=== PATIENT | male | born 1970 | race African-American/Black ===

== ENCOUNTER 2018-10-29 14:26 | Inpatient (IN) | payer OTHER ==
[2018-10-29 15:51] VITALS: BMI 23.3
--- NOTE | 2018-10-29 17:09 | HP ---
CIWA Score Nausea/Vomitin Muscle Tremors: 3 Anxiety: 3 Agitation: 0-Normal Activity Paroxysmal Sweats: 2 Orientation: 0-Oriented Tacttile Disturbances: 1-Very Mild Itch/Numbness Auditory Disturbances: 1-Very Mild Visual Disturbances: 0-None Headache: 0-None Present CIWA-Ar Total Score: 13 - Admission Criteria OASAS Guidelines: Admission for Medically Managed Detox: Requires at least one of the followin. CIWA greater than 12 2. Seizures within the past 24 hours 3. Delirium tremens within the past 24 hours 4. Hallucinations within the past 24 hours 5. Acute intervention needed for co occurring medical disorder 6. Acute intervention needed for co occurring psychiatric disorder 7. Severe withdrawal that cannot be handled at a lower level of care (continued vomiting, continued diarrhea, abnormal vital signs) requiring intravenous medication and/or fluids 8. Patient presents the following: CIWA greater than 12 Admission Criteria Met: Admission criteria met Admission ROS S - [facility] Chief Complaint: " I went to work smelling like the liquor store, I had the shakes and had drink " Allergies/Adverse Reactions: Allergies Allergy/AdvReac Type Severity Reaction Status Date / Time shellfish derived Allergy Severe Swelling Verified 10/29/18 16:46 History of Present Illness: 48 yo male with hx nicotine, marijuana and alcohol dependence is here seeking detox, self referred. Last detox two months ago at [facility]. PMHX: asthma, GERD, depression, bipolar, insomnia. Denies suicidal / homicidal. Reports hx of suicide attempt 2x with last attempt 10 years ago. Denies seizures or blackouts. Longest period of sobriety 1.5 years. Exam Limitations: No Limitations - Ebola screening Have you traveled outside of the country in the last 21 days: No Have you had contact with anyone from an Ebola affected area: No Have you been sick,other than usual withdrawal symptoms: No Do you have a fever: No - Review of Systems Constitutional: Chills, Changes in sleep, Unintentional Wgt. Loss EENT: reports: No Symptoms Reported, Dental Problems (dentalgia) Respiratory: reports: No Symptoms reported Cardiac: reports: No Symptoms Reported GI: reports: Nausea, Poor Fluid Intake, Vomiting : reports: No Symptoms Reported Musculoskeletal: reports: Other (right shoulder pain) Integumentary: reports: Pruritus Neuro: reports: No Symptoms reported Endocrine: reports: Increased Thirst Hematology: reports: No Symptoms Reported Psychiatric: reports: Orientated x3, Anxious, Depressed Other Systems: Reviewed and Negative Patient History - Patient Medical History Hx Anemia: No Hx Asthma: Yes Hx Chronic Obstructive Pulmonary Disease (COPD): No Hx Cancer: No Hx Cardiac Disorders: No Hx Congestive Heart Failure: No Hx Hypertension: No Hx Hypercholesterolemia: No Hx Pacemaker: No HX Cerebrovascular Accident: No Hx Seizures: No Hx Dementia: No Hx Diabetes: No Hx Gastrointestinal Disorders: No Hx Liver Disease: No Hx Genitourinary Disorders: No Hx Sexually Transmitted Disorders: Yes (Syphillis treated ) Hx Renal Disease (ESRD): No Hx Thyroid Disease: No Hx Human Immunodeficiency Virus (HIV): No Hx Depression: Yes Hx Suicide Attempt: Yes (Tried to overdose 10 yrs ago.) Hx Bipolar Disorder: Yes Hx Schizophrenia: No - Patient Surgical History Past Surgical History: No - PPD History Previous Implant?: Yes Documented Results: Negative w/o proof Implanted On Prior [facility] Admission?: No PPD to be Administered?: Yes - Smoking Cessation Smoking history: Current every day smoker Have you smoked in the past 12 months: Yes Aproximately how many cigarettes per day: 20 Hx Chewing Tobacco Use: No Initiated information on smoking cessation: Yes 'Breaking Loose' booklet given: 10/29/18 - Substance & Tx. History Hx Alcohol Use: Yes Hx Substance Use: Yes Substance Use Type: Alcohol, Marijuana Hx Substance Use Treatment: Yes (Detox two months ago at [facility] ) - Substances Abused Alcohol Route: Oral Frequency: Daily Amount used: 7-8 beers and 1/2 pint liquor Age of first use: 18 Date of Last Use: 10/29/18 Marijuana/Hashish Route: Smoking Frequency: 3-6 times per week Amount used: 4-5 blunts Age of first use: 17 Date of Last Use: 10/28/18 Cocaine Route: Inhalation Frequency: 3-6 times per week Amount used: $50 Age of first use: 24 Date of Last Use: 10/22/18 Family Disease History - Family Disease History Family Disease History: Other: Father (Substance dependence ), Mother ( Substance dependence) Admission Physical Exam BHS - Vital Signs Vital Signs: Vital Signs - 24 hr 10/29/18 15:49 Temperature 97.2 F L Pulse Rate 87 Respiratory 18 Rate Blood Pressure 119/67 - Physical General Appearance: Yes: Appropriately Dressed, Disheveled, Mild Distress, Thin , Anxious HEENTM: Yes: EOMI, Hearing grossly Normal, Normal ENT Inspection, Normocephalic , Normal Voice, NONA, Pharynx Normal, Tm's normal, Other (poor dentition, cheilithis) Respiratory: Yes: Chest Non-Tender, Lungs Clear, Normal Breath Sounds, No Respiratory Distress, No Accessory Muscle Use Neck: Yes: Within Normal Limits Breast: Yes: Breast Exam Deferred Cardiology: Yes: Regular Rhythm, Regular Rate Abdominal: Yes: Normal Bowel Sounds, Non Tender, Flat, Soft Genitourinary: Yes: Within Normal Limits Back: Yes: Normal Inspection Musculoskeletal: Yes: full range of Motion, Gait Steady, Pelvis Stable Extremities: Yes: Normal Capillary Refill, Normal Inspection, Normal Range of Motion, Non-Tender 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 NML intact, Fully Oriented, Alert, Motor Strength 5/5, Depressed Affect Integumentary: Yes: Normal Color, Warm, Moist Lymphatic: Yes: Within Normal Limits - Diagnostic (1) Alcohol dependence with withdrawal Current Visit: Yes Status: Acute Qualifiers: Complication of substance-induced condition: uncomplicated Qualified Code(s ): F10.230 - Alcohol dependence with withdrawal, uncomplicated (2) Asthma Current Visit: Yes Status: Chronic Qualifiers: Asthma severity: mild Asthma persistence: unspecified Asthma complication type: unspecified Qualified Code(s): J45.909 - Unspecified asthma , uncomplicated (3) GERD (gastroesophageal reflux disease) Current Visit: Yes Status: Acute (4) At risk for dehydration due to poor fluid intake Current Visit: Yes Status: Acute Cleared for Admission [facility] - Detox or Rehab [facility] Level of Care: Medically Managed Detox Regimen/Protocol: Librium [facility] Breath Alcohol Content Breath Alcohol Content: 0.002 Urine Drug Screen - Results Drug Screen Negative: No Urine Drug Screen Results: THC-Marijuana Inpatient Rehab Admission - Rehab Decision to Admit Inpatient rehab admission?: No
[2018-10-29] MEDS ORDERED: P-EPHED 60MG/TRIPROLIDI 2.5MG TABLET PO PRN (17:15)
[2018-10-29] MEDS ORDERED: IBUPROFEN 400 MG TABLET (FP) PO PRN (17:15)
[2018-10-29] MEDS ORDERED: MAGNESIUM HYDROX 2400MG/30ML ORAL SUSPENSION 30 ML CUP PO PRN (17:15)
[2018-10-29] MEDS ORDERED: chlordiazePOXIDE HCL 25 MG CAPSULE PO PRN (17:15)
[2018-10-29] MEDS ORDERED: MAG HYDROX/AL HYDROX/SIMETH 30 ML UNIT-DOSE CUP PO PRN (17:15)
[2018-10-29] MEDS ORDERED: hydrOXYzine PAMOATE 50 MG CAPSULE (FP) PO PRN (17:15)
[2018-10-29] MEDS ORDERED: MAGNESIUM CITRATE 300 ML BOTTLE PO PRN (17:15)
[2018-10-29] MEDS ORDERED: NICOTINE POLACRILEX 2 MG GUM BC PRN (17:15)
[2018-10-29] MEDS ORDERED: guaiFENesin/D-METHORPHAN HB 10 ML UNIT-DOSE CUPS PO PRN (17:15)
[2018-10-29] MEDS ORDERED: LOPERAMIDE HCL 2 MG CAPSULE PO PRN (17:15)
[2018-10-29] MEDS ORDERED: MENTHOL/PHENOL 1 EACH UD MM PRN (17:15)
[2018-10-29] MEDS ORDERED: ACETAMINOPHEN 325 MG TABLET (FP) PO PRN (17:15)
[2018-10-29] MEDS: THIAMINE HCL 100 MG TABLET (FP) PO SCH (22:55)
[2018-10-29] MEDS: chlordiazePOXIDE HCL 25 MG CAPSULE PO SCH (22:56)
[2018-10-30 00:01] LABS: URINE APPEARANCE CLEAR; URINE BILIRUBIN NEGATIVE (<2.0 mg/dL); URINE COLOR YELLOW; URINE GLUCOSE (UA) NEGATIVE (NEGATIVE); URINE KETONE NEGATIVE (NEGATIVE); URINE LEUK ESTERASE NEGATIVE (NEGATIVE); URINE NITRITE NEGATIVE (NEGATIVE); URINE PROTEIN NEGATIVE (NEGATIVE)
[2018-10-30] MEDS: chlordiazePOXIDE HCL 25 MG CAPSULE PO SCH ×4 (06:34→22:36)
[2018-10-30] MEDS: PRENATAL VITAMINS W/ FOLIC ACID TABLET (FP) PO SCH (10:07)
[2018-10-30] MEDS: NICOTINE 14 MG/24 HOURS TOPICAL PATCH TD SCH (10:09)
[2018-10-30 10:51] LABS: HEMATOCRIT 42.9 % (35.4-49); HEMOGLOBIN 14.9 GM/dL (11.7-16.9); MCHC 34.9 g/dl (32.0-35.9); MEAN CELL VOLUME 97.4 fl (80-96); MEAN PLT VOLUME 8.3 fl (7.5-11.1); PLATELET COUNT 223 K/MM3 (134-434); RDW 12.7 % (11.9-15.9)
[2018-10-30 10:53] LABS: ALBUMIN 3.2 g/dl (3.4-5.0); ALK PHOS 65 U/L (45-117); ANION GAP 6 MMOL/L (8-16); BILIRUBIN,TOTAL 0.4 mg/dL (0.2-1); BLOOD UREA NITROGEN 12 mg/dL (7-18); CALCIUM 8.7 mg/dL (8.5-10.1); CHLORIDE 108 mmol/L (98-107); CO2 27 mmol/L (21-32); CREATININE 1.1 mg/dL (0.55-1.3); GLUCOSE,RANDOM 84 mg/dL (74-106); POTASSIUM 4.4 mmol/L (3.5-5.1); SGOT/AST 14 U/L (15-37); SGPT/ALT 18 U/L (13-61); SODIUM 141 mmol/L (136-145); TOT PROT 5.9 g/dl (6.4-8.2)
--- NOTE | 2018-10-30 11:12 | PN ---
S CIWA - CIWA Score Nausea/Vomitin-No Nausea/No Vomiting Muscle Tremors: 3 Anxiety: 3 Agitation: 3 Paroxysmal Sweats: 3 Orientation: 0-Oriented Tacttile Disturbances: 0-None Auditory Disturbances: 0-None Visual Disturbances: 0-None Headache: 0-None Present CIWA-Ar Total Score: 12 BHS Progress Note (SOAP) Subjective: sweats shakes right shoulder pain interrupted sleep anxiety chest discomfort I think I have pneumonia Objective: 10/30/18 11:07 Vital Signs Temperature 96.9 F L 10/30/18 09:26 Pulse Rate 78 10/30/18 09:26 Respiratory Rate 18 10/30/18 09:26 Blood Pressure 121/66 10/30/18 09:26 O2 Sat by Pulse Oximetry (%) Laboratory Tests 10/29/18 10/30/18 23:05 07:00 Sodium 141 Potassium 4.4 Chloride 108 H Carbon Dioxide 27 Anion Gap 6 L BUN 12 Creatinine 1.1 Creat Clearance w eGFR > 60 Random Glucose 84 Calcium 8.7 Total Bilirubin 0.4 AST 14 L ALT 18 Alkaline Phosphatase 65 Total Protein 5.9 L Albumin 3.2 L Urine Color Yellow Urine Appearance Clear Urine pH 6.0 Ur Specific [place] 1.024 Urine Protein Negative Urine Glucose (UA) Negative Urine Ketones Negative Urine Blood Negative Urine Nitrite Negative Urine Bilirubin Negative Urine Urobilinogen 2.0 Ur Leukocyte Esterase Negative aaox3 ambulating no acute distress Assessment: 10/30/18 11:08 withdrawal sx right shoulder assess; pt is able to raise arm over head, however when pt asked to move arm and touch left shoulder; pt exhibited some discomfort and some resistance. Plan: continue detox increase fluids chest x-ray and shoulder x-ray ordered continue detox
[2018-10-30] MEDS: HYDROCORTISONE 1% TOPICAL CREAM 30 GM TUBE TP SCH (11:15)
[2018-10-30] MEDS: THIAMINE HCL 100 MG TABLET (FP) PO SCH (22:36)
[2018-10-30] MEDS: MELATONIN 5 MG TABLETS PO PRN (22:37)
[2018-10-31] MEDS: chlordiazePOXIDE HCL 25 MG CAPSULE PO SCH ×3 (07:08→17:28)
[2018-10-31] MEDS: HYDROCORTISONE 1% TOPICAL CREAM 30 GM TUBE TP SCH (10:29)
[2018-10-31] MEDS: NICOTINE 14 MG/24 HOURS TOPICAL PATCH TD SCH (10:29)
[2018-10-31] MEDS: PRENATAL VITAMINS W/ FOLIC ACID TABLET (FP) PO SCH (10:29)
--- NOTE | 2018-10-31 11:17 | PN ---
[facility] CIWA - CIWA Score Nausea/Vomitin-Mild Nausea/No Vomiting Muscle Tremors: 3 Anxiety: 3 Agitation: 2 Paroxysmal Sweats: 3 Orientation: 0-Oriented Tacttile Disturbances: 0-None Auditory Disturbances: 0-None Visual Disturbances: 0-None Headache: 0-None Present CIWA-Ar Total Score: 12 S Progress Note (SOAP) Subjective: "chest discomfort,heartburn" sweats Objective: 10/31/18 11:14 A & o x 3 Gait steady No guarding, SOB nor acute distress noted Vital Signs Temperature 96.4 F L 10/31/18 09:32 Pulse Rate 80 10/31/18 09:32 Respiratory Rate 18 10/31/18 09:32 Blood Pressure 126/69 10/31/18 09:32 O2 Sat by Pulse Oximetry (%) Noted Radiology reports consulted Assessment: 10/31/18 11:17 Withdrawal sx Heartburn Plan: Continue detox Protonis prn for heartburn
[2018-10-31] MEDS: PANTOPRAZOLE 20 MG TABLET (FP) PO SCH ×2 (12:24→22:17)
[2018-10-31] MEDS: IBUPROFEN 600 MG TABLET (FP) PO PRN (15:40)
[2018-10-31] MEDS: chlordiazePOXIDE 5 MG CAPSULE PO SCH (22:17)
[2018-10-31] MEDS: THIAMINE HCL 100 MG TABLET (FP) PO SCH (22:17)
[2018-11-01] MEDS: chlordiazePOXIDE 5 MG CAPSULE PO SCH ×3 (07:01→17:15)
[2018-11-01] MEDS: PANTOPRAZOLE 20 MG TABLET (FP) PO SCH ×2 (10:02→22:03)
[2018-11-01] MEDS: HYDROCORTISONE 1% TOPICAL CREAM 30 GM TUBE TP SCH (10:02)
[2018-11-01] MEDS: NICOTINE 14 MG/24 HOURS TOPICAL PATCH TD SCH (10:02)
[2018-11-01] MEDS: PRENATAL VITAMINS W/ FOLIC ACID TABLET (FP) PO SCH (10:02)
--- NOTE | 2018-11-01 14:53 | PN ---
BHS Progress Note (SOAP) Subjective: Sweating, tremor, chills, interrupted sleep. Patient c/o problem with right shoulder. Patient had xray of right shoulder on 10/30/18 which was negative. Objective: 11/01/18 14:49 Last Vital Signs Temp Pulse Resp BP Pulse Ox 96.8 F L 77 18 128/64 11/01/18 10:00 11/01/18 10:00 11/01/18 10:00 11/01/18 10:00 Laboratory Tests 10/29/18 10/30/18 10/30/18 23:05 07:00 07:00 WBC 6.0 RBC 4.40 Hgb 14.9 Hct 42.9 MCV 97.4 H MCH 34.0 H MCHC 34.9 RDW 12.7 Plt Count 223 MPV 8.3 Sodium Potassium Chloride Carbon Dioxide Anion Gap BUN Creatinine Creat Clearance w eGFR Random Glucose Calcium Total Bilirubin AST ALT Alkaline Phosphatase Total Protein Albumin Urine Color Yellow Urine Appearance Clear Urine pH 6.0 Ur Specific [place] 1.024 Urine Protein Negative Urine Glucose (UA) Negative Urine Ketones Negative Urine Blood Negative Urine Nitrite Negative Urine Bilirubin Negative Urine Urobilinogen 2.0 Ur Leukocyte Esterase Negative RPR Titer HIV 1&2 Antibody Screen Negative HIV P24 Antigen Negative 10/30/18 10/30/18 07:00 07:00 WBC RBC Hgb Hct MCV MCH MCHC RDW Plt Count MPV Sodium 141 Potassium 4.4 Chloride 108 H Carbon Dioxide 27 Anion Gap 6 L BUN 12 Creatinine 1.1 Creat Clearance w eGFR > 60 Random Glucose 84 Calcium 8.7 Total Bilirubin 0.4 AST 14 L ALT 18 Alkaline Phosphatase 65 Total Protein 5.9 L Albumin 3.2 L Urine Color Urine Appearance Urine pH Ur Specific [place] Urine Protein Urine Glucose (UA) Urine Ketones Urine Blood Urine Nitrite Urine Bilirubin Urine Urobilinogen Ur Leukocyte Esterase RPR Titer Nonreactive HIV 1&2 Antibody Screen HIV P24 Antigen Labs reviewed DI on 10/30/18: chest xray negative for pulmonary disease; right shoulder xray negative for fx or subluxation Assessment: 11/01/18 14:50 Withdrawal symptoms Patient c/o pain/problem with right shoulder Plan: Continue detox Encouraged PO water hydration Right shoulder pain/discomfort: continue motrin/tylenol prn Follow up with PCP post discharge for further evaluation
[2018-11-01] MEDS: THIAMINE HCL 100 MG TABLET (FP) PO SCH (22:02)
[2018-11-01] MEDS: chlordiazePOXIDE HCL 10 MG CAPSULE PO SCH (22:03)
[2018-11-01] MEDS: MELATONIN 5 MG TABLETS PO PRN (22:03)
[2018-11-02] MEDS: IBUPROFEN 600 MG TABLET (FP) PO PRN (03:37)
[2018-11-02] MEDS: chlordiazePOXIDE HCL 10 MG CAPSULE PO SCH ×3 (07:32→18:07)
--- NOTE | 2018-11-02 09:18 | DS ---
[facility] Detox Discharge Summary Admission Date: 10/29/18 Discharge Date: 11/02/18 - History Present History: Alcohol Dependence - Physical Exam Results Vital Signs: Vital Signs Temperature 97.5 F L 11/02/18 06:43 Pulse Rate 76 11/02/18 06:43 Respiratory Rate 20 11/02/18 06:43 Blood Pressure 119/68 11/02/18 06:43 O2 Sat by Pulse Oximetry (%) - Treatment Hospital Course: Detox Protocol Followed, Detoxed Safely, Responded well, Discharged Condition Good, Rehab Referral Accepted - Medication Discharge Medications: Ambulatory Orders Unobtainable 10/29/18 - Diagnosis (1) Alcohol dependence with withdrawal Current Visit: Yes Status: Chronic Qualifiers: Complication of substance-induced condition: uncomplicated Qualified Code(s ): F10.230 - Alcohol dependence with withdrawal, uncomplicated (2) At risk for dehydration due to poor fluid intake Current Visit: Yes Status: Acute (3) GERD (gastroesophageal reflux disease) Current Visit: Yes Status: Chronic Qualifiers: Esophagitis presence: without esophagitis Qualified Code(s): K21.9 - Gastro -esophageal reflux disease without esophagitis (4) Asthma Current Visit: Yes Status: Chronic Qualifiers: Asthma severity: mild Asthma persistence: unspecified Asthma complication type: unspecified Qualified Code(s): J45.909 - Unspecified asthma , uncomplicated - AMA Did Patient Leave Against Medical Advice: No (referred to [facility])
[2018-11-02] MEDS: HYDROCORTISONE 1% TOPICAL CREAM 30 GM TUBE TP SCH (10:11)
[2018-11-02] MEDS: PRENATAL VITAMINS W/ FOLIC ACID TABLET (FP) PO SCH (10:11)
[2018-11-02] MEDS: PANTOPRAZOLE 20 MG TABLET (FP) PO SCH (10:11)
--- NOTE | 2018-11-02 11:08 | EKG ---
Test Reason : Blood Pressure : / mmHG Vent. Rate : 086 BPM Atrial Rate : 086 BPM P-R Int : 162 ms QRS Dur : 086 ms QT Int : 368 ms P-R-T Axes : 047 076 049 degrees QTc Int : 440 ms NORMAL SINUS RHYTHM NORMAL ECG NO PREVIOUS ECGS AVAILABLE Confirmed by GORGE DAVENPORT, NARENDRA ([id number]) on 11/02/2018 11:08:24 AM Referred By: FORTUNATO RUSHING Confirmed By:NARENDRA PENNINGTON MD
[2018-11-02] MEDS: NICOTINE 14 MG/24 HOURS TOPICAL PATCH TD SCH (12:11)
[2018-11-02 17:26] VITALS: BP 129/82; PULSE 78; TEMP 97.2
== END 2018-11-02 19:37 | disposition other institution (70) | DRG 774 ==
LOC: YASAS 14:26 → Y6N 17:19
PROVIDERS: ADMIT Surgery; ATTEND Surgery
PROC: HZ2ZZZZ Detoxification Services for Substance Abuse Treatment (ICD-10-PCS; principal; 2018-10-29)
DX: F10.230 Alcohol dependence with withdrawal, uncomplicated (principal); F14.10 Cocaine abuse, uncomplicated; F12.10 Cannabis abuse, uncomplicated; K21.9 Gastro-esophageal reflux disease without esophagitis; G47.00 Insomnia, unspecified; M25.511 Pain in right shoulder; Z91.89 Other specified personal risk factors, not elsewhere classified; Z86.19 Personal history of other infectious and parasitic diseases; Z91.5 Personal history of self-harm; Z91.013 Allergy to seafood
CPT/HCPCS: 36415; 71046-TC-FY; 73030-TC-RT-FY; 80053; 81003; 85027; 86593; 87389; 93005; 93010

== ENCOUNTER 2018-11-02 19:56 | Inpatient (IN) | payer OTHER ==
[2018-11-03] MEDS ORDERED: MAG HYDROX/AL HYDROX/SIMETH 30 ML UNIT-DOSE CUP PO PRN (00:06)
[2018-11-03] MEDS ORDERED: LOPERAMIDE HCL 2 MG CAPSULE PO PRN (00:06)
[2018-11-03] MEDS ORDERED: guaiFENesin/D-METHORPHAN HB 10 ML UNIT-DOSE CUPS PO PRN (00:06)
[2018-11-03] MEDS ORDERED: MENTHOL/PHENOL 1 EACH UD MM PRN (00:06)
[2018-11-03] MEDS ORDERED: MAGNESIUM HYDROX 2400MG/30ML ORAL SUSPENSION 30 ML CUP PO PRN (00:06)
[2018-11-03] MEDS ORDERED: P-EPHED 60MG/TRIPROLIDI 2.5MG TABLET PO PRN (00:06)
[2018-11-03] MEDS ORDERED: NICOTINE POLACRILEX 2 MG GUM BUC PRN (00:06)
[2018-11-03] MEDS ORDERED: MAGNESIUM CITRATE 300 ML BOTTLE PO PRN (00:06)
--- NOTE | 2018-11-03 00:06 | HP ---
JOVANNA DAVENPORT Rehab Assess/Revision - Admission History Admitted to Rehab from: [facility] Date of Admission to Rehab: 11/02/2018 - Vital signs Vital Signs: Vital Signs Period Temp Pulse Resp BP Sys/Peck Pulse Ox Last 24 Hr 91 18 150/74 - Findings Detox History & Physical reviewed: Yes Concur with findings: Yes Inpatient Rehab Admission - Rehab Decision to Admit Inpatient rehab admission?: Yes - Initial Determination Are CD services needed?: Yes Free of communicable disease: Yes Not in need of hospitalization: Yes - Rehab Admission Criteria Previous failed treatment: Yes Poor recovery environment: Yes Comorbidities: Yes Lacks judgement: No Patient is meeting Inpatient Rehab admission criteria:: Yes
[2018-11-03] MEDS: IBUPROFEN 400 MG TABLET (FP) PO PRN (04:11)
[2018-11-03] MEDS: PRENATAL VITAMINS W/ FOLIC ACID TABLET (FP) PO SCH (10:24)
[2018-11-03] MEDS: NICOTINE 14 MG/24 HOURS TOPICAL PATCH TD SCH (10:25)
[2018-11-03] MEDS: hydrOXYzine PAMOATE 50 MG CAPSULE (FP) PO PRN ×2 (10:26→21:47)
[2018-11-03] MEDS: THIAMINE HCL 100 MG TABLET (FP) PO SCH (21:47)
[2018-11-03] MEDS: MELATONIN 5 MG TABLETS PO PRN (21:47)
--- NOTE | 2018-11-04 06:55 | CONSULT ---
[facility] Psychiatric Consult - Data Date of interview: 11/04/18 Admission source: 6N Identifying data: Mr Infante is a 48 years old single Black male, father of 5 children, unemployed receiving food stamp, homeles seeking inpatient rehab treatment for alcohol, cocaine and cannabis Substance Abuse History: Reports history of alcohol, cocaine and marijuana use. Refer to addiction counselor's summary for further information Medical History: Significant for bronchial asthma, GERD, and treatment for syphilis. Smokes cigarettes 1 ppd Psychiatric History: Reports being diagnosed with Bipolar Disorder in the early while at [employer]. Claims that he was started on psychotropic medication but does recall name of medication. While incarcerated at [facility] from [id number], he saw a psychiatrist and was placed on medication. 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 Reports that he was last on Seroquel 300 mg po HS. Requests to start Seroquel during this admission course. Denies previous psychiatric hospitalization. Reports history of 2 previous suicidal attempts by cutting his wrist and ingesting pills. At present, reports feeling depressed and sleeping poorly. Deniesc experiencing Psychotic, manic symptoms, S/H ideations Physical/Sexual Abuse/Trauma History: Denies history of emotional, physical or sexual abuse. However reports that growing up was tough. tell typewriter tester that he was a bad kid and was considered as an outcast. He said that he had to live in the street when he was 14-15 years old Additional Comment: Reports history of multiple previous arrests including 2 felony convictions. Denies being on parole/probation at present. [place]ver claims that he has a warrant on him for unpaid tickets Mental Status Exam - Mental Status Exam Alert and Oriented to: Time, Place, Person Cognitive Function: Fair Patient Appearance: Well Groomed Mood: Depressed (mildly) Affect: Appropriate Patient Behavior: Cooperative Speech Pattern: Clear Voice Loudness: Normal Thought Process: Intact Thought Disorder: Not Present Hallucinations: Denies Suicidal Ideation: Denies Homicidal Ideation: Denies Insight/Judgement: Fair Sleep: Poorly Appetite: Fair Muscle strength/Tone: Normal Gait/Station: Normal Psychiatric Findings - Problem List ([place] 1, 2,3) (1) Mood disorder Current Visit: Yes Status: Chronic (2) Bipolar disorder Current Visit: Yes Status: Ruled-out (3) Substance induced mood disorder Current Visit: Yes Status: Acute (4) Substance-induced sleep disorder Current Visit: Yes Status: Acute (5) Alcohol dependence Current Visit: Yes Status: Acute (6) Cocaine dependence Current Visit: Yes Status: Acute (7) Cannabis dependence Current Visit: Yes Status: Acute (8) Nicotine dependence Current Visit: Yes Status: Chronic (9) Bronchial asthma Current Visit: Yes Status: Chronic (10) GERD (gastroesophageal reflux disease) Current Visit: Yes Status: Acute - Initial Treatment Plan Initial Treatment Plan: 1) Start Seroquel 100 mg po HS. Benefits vs Risks(TD, Glucose dysregulation) of medication discussed with patient. 2) Continue inpatient rehabilitation
[2018-11-04] MEDS: NICOTINE 14 MG/24 HOURS TOPICAL PATCH TD SCH (10:16)
[2018-11-04] MEDS: PRENATAL VITAMINS W/ FOLIC ACID TABLET (FP) PO SCH (10:16)
--- NOTE | 2018-11-04 11:53 | PN ---
S Progress Note Note: C/O ITCHY RASH ON BACK X ONE MONTH. PT STATES WENT TO [facility] TWO WEEKS AGO FOR TOOTH ACHE. REPORTS WAS GIVEN "ANTIBIOTICS(TWICE A DAY) AND PAIN KILLER" THAT HE WAS TAKEN FOR "ONE WEEK - TWO WEEKS ON/OFF BECAUSE ILL BE DRINKING". REPORTS RASH ON BACK HAS GOTTEN BETTER WITH THE TREATMENT. Vital Signs (72 hours) 11/02/18 11/03/18 11/03/18 20:00 00:30 03:30 Temperature Pulse Rate 91 H Respiratory 18 18 18 Rate Blood Pressure 150/74 11/03/18 11/04/18 11/04/18 07:13 00:30 03:30 Temperature 97.6 F Pulse Rate 88 Respiratory 18 18 18 Rate Blood Pressure 132/79 BACK EXAM: SMALL AREA OF DRY, SLIGHTLY DARKER SKIN DISCOLORATION ON LEFT UPPER BACK IN HEALING STAGE. NAD A:DERMATITIS PLAN:HYDROCORTISONE CREAM 1% APPLY DIRECTED.
[2018-11-04] MEDS ORDERED: HYDROCORTISONE 1% TOPICAL OINT 30 GM TUBE TP ONE (11:55)
[2018-11-04] MEDS: IBUPROFEN 400 MG TABLET (FP) PO PRN (21:54)
[2018-11-04] MEDS: THIAMINE HCL 100 MG TABLET (FP) PO SCH (21:54)
[2018-11-04] MEDS: QUEtiapine FUMARATE 100 MG TABLET (FP) PO SCH (21:54)
[2018-11-04] MEDS: HYDROCORTISONE 1% TOPICAL OINT 30 GM TUBE TP SCH (21:55)
[2018-11-04] MEDS ORDERED: HYDROCORTISONE 1% TOPICAL OINT 30 GM TUBE TP SCH (22:00)
[2018-11-05] MEDS: HYDROCORTISONE 1% TOPICAL OINT 30 GM TUBE TP SCH ×2 (10:01→22:08)
[2018-11-05] MEDS: PRENATAL VITAMINS W/ FOLIC ACID TABLET (FP) PO SCH (10:02)
[2018-11-05] MEDS: NICOTINE 14 MG/24 HOURS TOPICAL PATCH TD SCH (10:02)
[2018-11-05] MEDS: ACETAMINOPHEN 325 MG TABLET (FP) PO PRN (18:16)
[2018-11-05] MEDS: THIAMINE HCL 100 MG TABLET (FP) PO SCH (22:08)
[2018-11-05] MEDS: QUEtiapine FUMARATE 100 MG TABLET (FP) PO SCH (22:08)
[2018-11-06] MEDS: IBUPROFEN 400 MG TABLET (FP) PO PRN (00:02)
[2018-11-06] MEDS: PRENATAL VITAMINS W/ FOLIC ACID TABLET (FP) PO SCH (10:42)
[2018-11-06] MEDS: NICOTINE 14 MG/24 HOURS TOPICAL PATCH TD SCH (10:42)
[2018-11-06] MEDS: HYDROCORTISONE 1% TOPICAL OINT 30 GM TUBE TP SCH ×2 (10:43→22:57)
[2018-11-06] MEDS: QUEtiapine FUMARATE 100 MG TABLET (FP) PO SCH (22:57)
[2018-11-06] MEDS: THIAMINE HCL 100 MG TABLET (FP) PO SCH (22:57)
[2018-11-07] MEDS: IBUPROFEN 400 MG TABLET (FP) PO PRN ×3 (00:47→22:00)
[2018-11-07] MEDS: PRENATAL VITAMINS W/ FOLIC ACID TABLET (FP) PO SCH (10:10)
[2018-11-07] MEDS: NICOTINE 14 MG/24 HOURS TOPICAL PATCH TD SCH (10:10)
[2018-11-07] MEDS: HYDROCORTISONE 1% TOPICAL OINT 30 GM TUBE TP SCH ×2 (10:10→22:01)
[2018-11-07] MEDS: THIAMINE HCL 100 MG TABLET (FP) PO SCH (21:59)
[2018-11-07] MEDS: QUEtiapine FUMARATE 100 MG TABLET (FP) PO SCH (22:00)
[2018-11-08] MEDS: IBUPROFEN 400 MG TABLET (FP) PO PRN (10:37)
[2018-11-08] MEDS: PRENATAL VITAMINS W/ FOLIC ACID TABLET (FP) PO SCH (10:37)
[2018-11-08] MEDS: NICOTINE 14 MG/24 HOURS TOPICAL PATCH TD SCH (10:37)
[2018-11-08] MEDS: HYDROCORTISONE 1% TOPICAL OINT 30 GM TUBE TP SCH ×2 (10:38→22:21)
[2018-11-08] MEDS: THIAMINE HCL 100 MG TABLET (FP) PO SCH (22:20)
[2018-11-08] MEDS: QUEtiapine FUMARATE 100 MG TABLET (FP) PO SCH (22:20)
[2018-11-09] MEDS: NICOTINE 14 MG/24 HOURS TOPICAL PATCH TD SCH (10:57)
[2018-11-09] MEDS: PRENATAL VITAMINS W/ FOLIC ACID TABLET (FP) PO SCH (10:57)
[2018-11-09] MEDS: HYDROCORTISONE 1% TOPICAL OINT 30 GM TUBE TP SCH ×2 (10:57→21:54)
--- NOTE | 2018-11-09 13:44 | PN ---
BHS Progress Note Note: C/O PAIN RIGHT SHOULDER. PT DENIES TRUAMA TO THE SHOULDER. MOTRIN 400 MG NOT EFFECTIVE. Vital Signs - 24 hr 11/09/18 11/09/18 11/09/18 00:30 03:30 07:07 Temperature 98.1 F Pulse Rate 89 Respiratory 18 18 18 Rate Blood Pressure 129/81 RIGHT ARM:ACTIVE ROM NORMAL HAND RAISE NO SWELLING NOTED. A:RIGHT SHOULDER PAIN PLAN:INCREASE [id number] MG PO Q6H PRN FLEXERIL 10 MG PO TID.
[2018-11-09] MEDS: CYCLOBENZAPRINE HCL 10 MG TABLET (FP) PO SCH ×2 (15:05→21:52)
[2018-11-09] MEDS: THIAMINE HCL 100 MG TABLET (FP) PO SCH (21:52)
[2018-11-09] MEDS: IBUPROFEN 600 MG TABLET (FP) PO PRN (21:52)
[2018-11-09] MEDS: QUEtiapine FUMARATE 100 MG TABLET (FP) PO SCH (21:52)
[2018-11-10] MEDS: CYCLOBENZAPRINE HCL 10 MG TABLET (FP) PO SCH ×3 (07:05→21:37)
[2018-11-10] MEDS: PRENATAL VITAMINS W/ FOLIC ACID TABLET (FP) PO SCH (10:26)
[2018-11-10] MEDS: NICOTINE 14 MG/24 HOURS TOPICAL PATCH TD SCH (10:26)
[2018-11-10] MEDS: HYDROCORTISONE 1% TOPICAL OINT 30 GM TUBE TP SCH ×2 (10:27→21:37)
[2018-11-10] MEDS: IBUPROFEN 600 MG TABLET (FP) PO PRN (10:28)
[2018-11-10] MEDS: QUEtiapine FUMARATE 100 MG TABLET (FP) PO SCH (21:37)
[2018-11-10] MEDS: THIAMINE HCL 100 MG TABLET (FP) PO SCH (21:37)
[2018-11-11] MEDS: CYCLOBENZAPRINE HCL 10 MG TABLET (FP) PO SCH ×3 (06:58→22:03)
[2018-11-11] MEDS: HYDROCORTISONE 1% TOPICAL OINT 30 GM TUBE TP SCH ×2 (10:45→22:04)
[2018-11-11] MEDS: PRENATAL VITAMINS W/ FOLIC ACID TABLET (FP) PO SCH (10:45)
[2018-11-11] MEDS: NICOTINE 14 MG/24 HOURS TOPICAL PATCH TD SCH (10:46)
[2018-11-11] MEDS: IBUPROFEN 600 MG TABLET (FP) PO PRN ×2 (13:24→22:04)
[2018-11-11] MEDS: QUEtiapine FUMARATE 100 MG TABLET (FP) PO SCH (22:02)
[2018-11-11] MEDS: THIAMINE HCL 100 MG TABLET (FP) PO SCH (22:03)
[2018-11-12] MEDS: CYCLOBENZAPRINE HCL 10 MG TABLET (FP) PO SCH ×2 (07:14→17:30)
[2018-11-12] MEDS ORDERED: CYCLOBENZAPRINE HCL 10 MG TABLET (FP) PO ONE (10:23)
[2018-11-12] MEDS: NICOTINE 14 MG/24 HOURS TOPICAL PATCH TD SCH (10:55)
[2018-11-12] MEDS: PRENATAL VITAMINS W/ FOLIC ACID TABLET (FP) PO SCH (10:55)
[2018-11-12] MEDS: IBUPROFEN 600 MG TABLET (FP) PO PRN ×2 (11:02→21:38)
[2018-11-12] MEDS: HYDROCORTISONE 1% TOPICAL OINT 30 GM TUBE TP SCH ×2 (11:41→21:39)
[2018-11-12] MEDS: ACETAMINOPHEN 325 MG TABLET (FP) PO PRN (14:21)
[2018-11-12] MEDS: hydrOXYzine PAMOATE 50 MG CAPSULE (FP) PO PRN (14:21)
[2018-11-12] MEDS: QUEtiapine FUMARATE 100 MG TABLET (FP) PO SCH (21:37)
[2018-11-12] MEDS: THIAMINE HCL 100 MG TABLET (FP) PO SCH (21:37)
[2018-11-13] MEDS: NICOTINE 14 MG/24 HOURS TOPICAL PATCH TD SCH (10:38)
[2018-11-13] MEDS: CYCLOBENZAPRINE HCL 10 MG TABLET (FP) PO SCH ×2 (10:38→17:45)
[2018-11-13] MEDS: PRENATAL VITAMINS W/ FOLIC ACID TABLET (FP) PO SCH (10:38)
[2018-11-13] MEDS: HYDROCORTISONE 1% TOPICAL OINT 30 GM TUBE TP SCH ×2 (10:39→22:09)
[2018-11-13] MEDS: IBUPROFEN 600 MG TABLET (FP) PO PRN ×2 (10:41→19:55)
[2018-11-13] MEDS: QUEtiapine FUMARATE 100 MG TABLET (FP) PO SCH (22:09)
[2018-11-13] MEDS: THIAMINE HCL 100 MG TABLET (FP) PO SCH (22:09)
[2018-11-14] MEDS: PRENATAL VITAMINS W/ FOLIC ACID TABLET (FP) PO SCH (10:45)
[2018-11-14] MEDS: CYCLOBENZAPRINE HCL 10 MG TABLET (FP) PO SCH ×2 (10:45→17:04)
[2018-11-14] MEDS: HYDROCORTISONE 1% TOPICAL OINT 30 GM TUBE TP SCH ×2 (10:45→21:56)
[2018-11-14] MEDS: NICOTINE 14 MG/24 HOURS TOPICAL PATCH TD SCH (10:45)
[2018-11-14] MEDS: IBUPROFEN 600 MG TABLET (FP) PO PRN ×2 (16:54→21:57)
[2018-11-14] MEDS: THIAMINE HCL 100 MG TABLET (FP) PO SCH (21:56)
[2018-11-14] MEDS: QUEtiapine FUMARATE 100 MG TABLET (FP) PO SCH (21:56)
[2018-11-15] MEDS: HYDROCORTISONE 1% TOPICAL OINT 30 GM TUBE TP SCH ×2 (10:57→21:49)
[2018-11-15] MEDS: IBUPROFEN 600 MG TABLET (FP) PO PRN ×2 (10:57→21:48)
[2018-11-15] MEDS: CYCLOBENZAPRINE HCL 10 MG TABLET (FP) PO SCH ×2 (10:57→17:24)
[2018-11-15] MEDS: NICOTINE 14 MG/24 HOURS TOPICAL PATCH TD SCH (10:57)
[2018-11-15] MEDS: PRENATAL VITAMINS W/ FOLIC ACID TABLET (FP) PO SCH (10:57)
[2018-11-15] MEDS: THIAMINE HCL 100 MG TABLET (FP) PO SCH (21:47)
[2018-11-15] MEDS: QUEtiapine FUMARATE 100 MG TABLET (FP) PO SCH (21:47)
[2018-11-16] MEDS: CYCLOBENZAPRINE HCL 10 MG TABLET (FP) PO SCH ×2 (10:57→18:37)
[2018-11-16] MEDS: PRENATAL VITAMINS W/ FOLIC ACID TABLET (FP) PO SCH (10:57)
[2018-11-16] MEDS: HYDROCORTISONE 1% TOPICAL OINT 30 GM TUBE TP SCH ×2 (10:58→22:01)
[2018-11-16] MEDS: NICOTINE 14 MG/24 HOURS TOPICAL PATCH TD SCH (10:58)
[2018-11-16] MEDS: QUEtiapine FUMARATE 100 MG TABLET (FP) PO SCH (21:59)
[2018-11-16] MEDS: THIAMINE HCL 100 MG TABLET (FP) PO SCH (21:59)
[2018-11-16] MEDS: IBUPROFEN 600 MG TABLET (FP) PO PRN (22:00)
[2018-11-17] MEDS: CYCLOBENZAPRINE HCL 10 MG TABLET (FP) PO SCH ×2 (11:08→17:51)
[2018-11-17] MEDS: HYDROCORTISONE 1% TOPICAL OINT 30 GM TUBE TP SCH ×2 (11:09→22:02)
[2018-11-17] MEDS: NICOTINE 14 MG/24 HOURS TOPICAL PATCH TD SCH (11:09)
[2018-11-17] MEDS: PRENATAL VITAMINS W/ FOLIC ACID TABLET (FP) PO SCH (11:10)
[2018-11-17] MEDS: IBUPROFEN 600 MG TABLET (FP) PO PRN (17:52)
[2018-11-17] MEDS: QUEtiapine FUMARATE 100 MG TABLET (FP) PO SCH (22:01)
[2018-11-17] MEDS: THIAMINE HCL 100 MG TABLET (FP) PO SCH (22:01)
[2018-11-17] MEDS: ACETAMINOPHEN 325 MG TABLET (FP) PO PRN (22:03)
[2018-11-18] MEDS: CYCLOBENZAPRINE HCL 10 MG TABLET (FP) PO SCH ×2 (11:10→17:11)
[2018-11-18] MEDS: HYDROCORTISONE 1% TOPICAL OINT 30 GM TUBE TP SCH ×2 (11:10→21:53)
[2018-11-18] MEDS: PRENATAL VITAMINS W/ FOLIC ACID TABLET (FP) PO SCH (11:11)
[2018-11-18] MEDS: NICOTINE 14 MG/24 HOURS TOPICAL PATCH TD SCH (11:11)
[2018-11-18] MEDS: QUEtiapine FUMARATE 100 MG TABLET (FP) PO SCH (21:52)
[2018-11-18] MEDS: THIAMINE HCL 100 MG TABLET (FP) PO SCH (21:52)
[2018-11-18] MEDS: IBUPROFEN 600 MG TABLET (FP) PO PRN (21:52)
[2018-11-19] MEDS: PRENATAL VITAMINS W/ FOLIC ACID TABLET (FP) PO SCH (10:46)
[2018-11-19] MEDS: CYCLOBENZAPRINE HCL 10 MG TABLET (FP) PO SCH ×2 (10:46→17:08)
[2018-11-19] MEDS: HYDROCORTISONE 1% TOPICAL OINT 30 GM TUBE TP SCH ×2 (10:47→21:53)
[2018-11-19] MEDS: NICOTINE 14 MG/24 HOURS TOPICAL PATCH TD SCH (10:47)
[2018-11-19] MEDS: IBUPROFEN 600 MG TABLET (FP) PO PRN ×2 (10:48→21:52)
[2018-11-19] MEDS: QUEtiapine FUMARATE 100 MG TABLET (FP) PO SCH (21:52)
[2018-11-19] MEDS: THIAMINE HCL 100 MG TABLET (FP) PO SCH (21:52)
[2018-11-20] MEDS: HYDROCORTISONE 1% TOPICAL OINT 30 GM TUBE TP SCH ×2 (10:37→21:54)
[2018-11-20] MEDS: CYCLOBENZAPRINE HCL 10 MG TABLET (FP) PO SCH ×2 (10:37→17:23)
[2018-11-20] MEDS: NICOTINE 14 MG/24 HOURS TOPICAL PATCH TD SCH (10:37)
[2018-11-20] MEDS: PRENATAL VITAMINS W/ FOLIC ACID TABLET (FP) PO SCH (10:37)
[2018-11-20] MEDS: IBUPROFEN 600 MG TABLET (FP) PO PRN (17:23)
[2018-11-20] MEDS: ACETAMINOPHEN 325 MG TABLET (FP) PO PRN (21:53)
[2018-11-20] MEDS: THIAMINE HCL 100 MG TABLET (FP) PO SCH (21:53)
[2018-11-20] MEDS: QUEtiapine FUMARATE 100 MG TABLET (FP) PO SCH (21:53)
[2018-11-21] MEDS: PRENATAL VITAMINS W/ FOLIC ACID TABLET (FP) PO SCH (10:50)
[2018-11-21] MEDS: CYCLOBENZAPRINE HCL 10 MG TABLET (FP) PO SCH ×2 (10:50→17:11)
[2018-11-21] MEDS: IBUPROFEN 600 MG TABLET (FP) PO PRN (10:51)
[2018-11-21] MEDS: NICOTINE 14 MG/24 HOURS TOPICAL PATCH TD SCH (10:51)
[2018-11-21] MEDS: HYDROCORTISONE 1% TOPICAL OINT 30 GM TUBE TP SCH ×2 (10:51→22:03)
[2018-11-21] MEDS: THIAMINE HCL 100 MG TABLET (FP) PO SCH (22:03)
[2018-11-21] MEDS: QUEtiapine FUMARATE 100 MG TABLET (FP) PO SCH (22:03)
[2018-11-21] MEDS: ACETAMINOPHEN 325 MG TABLET (FP) PO PRN (22:04)
[2018-11-22] MEDS: HYDROCORTISONE 1% TOPICAL OINT 30 GM TUBE TP SCH ×2 (10:39→21:58)
[2018-11-22] MEDS: PRENATAL VITAMINS W/ FOLIC ACID TABLET (FP) PO SCH (10:39)
[2018-11-22] MEDS: CYCLOBENZAPRINE HCL 10 MG TABLET (FP) PO SCH ×2 (10:39→18:08)
[2018-11-22] MEDS: NICOTINE 14 MG/24 HOURS TOPICAL PATCH TD SCH (10:39)
[2018-11-22] MEDS: IBUPROFEN 600 MG TABLET (FP) PO PRN ×2 (10:41→18:08)
[2018-11-22] MEDS: THIAMINE HCL 100 MG TABLET (FP) PO SCH (21:56)
[2018-11-22] MEDS: QUEtiapine FUMARATE 100 MG TABLET (FP) PO SCH (21:56)
[2018-11-22] MEDS: ACETAMINOPHEN 325 MG TABLET (FP) PO PRN (21:58)
[2018-11-22] MEDS: MELATONIN 5 MG TABLETS PO PRN (21:58)
[2018-11-23] MEDS: IBUPROFEN 600 MG TABLET (FP) PO PRN ×3 (02:46→22:03)
[2018-11-23] MEDS: CYCLOBENZAPRINE HCL 10 MG TABLET (FP) PO SCH ×2 (10:56→17:03)
[2018-11-23] MEDS: HYDROCORTISONE 1% TOPICAL OINT 30 GM TUBE TP SCH ×2 (10:56→22:04)
[2018-11-23] MEDS: NICOTINE 14 MG/24 HOURS TOPICAL PATCH TD SCH (10:56)
[2018-11-23] MEDS: PRENATAL VITAMINS W/ FOLIC ACID TABLET (FP) PO SCH (10:57)
[2018-11-23] MEDS: ACETAMINOPHEN 325 MG TABLET (FP) PO PRN (20:29)
[2018-11-23] MEDS: THIAMINE HCL 100 MG TABLET (FP) PO SCH (22:02)
[2018-11-23] MEDS: QUEtiapine FUMARATE 100 MG TABLET (FP) PO SCH (22:02)
[2018-11-24] MEDS: PRENATAL VITAMINS W/ FOLIC ACID TABLET (FP) PO SCH (10:41)
[2018-11-24] MEDS: CYCLOBENZAPRINE HCL 10 MG TABLET (FP) PO SCH ×2 (10:41→17:28)
[2018-11-24] MEDS: NICOTINE 14 MG/24 HOURS TOPICAL PATCH TD SCH (10:41)
[2018-11-24] MEDS: HYDROCORTISONE 1% TOPICAL OINT 30 GM TUBE TP SCH ×2 (10:42→21:48)
[2018-11-24] MEDS: IBUPROFEN 600 MG TABLET (FP) PO PRN ×2 (13:07→21:47)
[2018-11-24] MEDS: QUEtiapine FUMARATE 100 MG TABLET (FP) PO SCH (21:47)
[2018-11-24] MEDS: THIAMINE HCL 100 MG TABLET (FP) PO SCH (21:47)
[2018-11-25] MEDS: PRENATAL VITAMINS W/ FOLIC ACID TABLET (FP) PO SCH (10:51)
[2018-11-25] MEDS: HYDROCORTISONE 1% TOPICAL OINT 30 GM TUBE TP SCH ×2 (10:51→21:48)
[2018-11-25] MEDS: IBUPROFEN 600 MG TABLET (FP) PO PRN ×2 (10:51→20:34)
[2018-11-25] MEDS: CYCLOBENZAPRINE HCL 10 MG TABLET (FP) PO SCH ×2 (10:51→17:04)
[2018-11-25] MEDS: NICOTINE 14 MG/24 HOURS TOPICAL PATCH TD SCH (10:51)
[2018-11-25] MEDS: hydrOXYzine PAMOATE 50 MG CAPSULE (FP) PO PRN (21:48)
[2018-11-25] MEDS: QUEtiapine FUMARATE 100 MG TABLET (FP) PO SCH (21:48)
[2018-11-25] MEDS: THIAMINE HCL 100 MG TABLET (FP) PO SCH (21:48)
[2018-11-26] MEDS: IBUPROFEN 600 MG TABLET (FP) PO PRN ×4 (01:51→23:38)
[2018-11-26] MEDS: CYCLOBENZAPRINE HCL 10 MG TABLET (FP) PO SCH ×2 (10:19→17:36)
[2018-11-26] MEDS: PRENATAL VITAMINS W/ FOLIC ACID TABLET (FP) PO SCH (10:19)
[2018-11-26] MEDS: HYDROCORTISONE 1% TOPICAL OINT 30 GM TUBE TP SCH ×2 (10:20→21:55)
[2018-11-26] MEDS: NICOTINE 14 MG/24 HOURS TOPICAL PATCH TD SCH (10:20)
[2018-11-26] MEDS: ACETAMINOPHEN 325 MG TABLET (FP) PO PRN ×2 (18:33→21:54)
[2018-11-26] MEDS: QUEtiapine FUMARATE 100 MG TABLET (FP) PO SCH (21:54)
[2018-11-26] MEDS: THIAMINE HCL 100 MG TABLET (FP) PO SCH (21:54)
[2018-11-27] MEDS: NICOTINE 14 MG/24 HOURS TOPICAL PATCH TD SCH (10:47)
[2018-11-27] MEDS: CYCLOBENZAPRINE HCL 10 MG TABLET (FP) PO SCH ×2 (10:47→17:11)
[2018-11-27] MEDS: IBUPROFEN 600 MG TABLET (FP) PO PRN ×2 (10:47→17:12)
[2018-11-27] MEDS: PRENATAL VITAMINS W/ FOLIC ACID TABLET (FP) PO SCH (10:47)
[2018-11-27] MEDS: HYDROCORTISONE 1% TOPICAL OINT 30 GM TUBE TP SCH ×2 (10:47→21:54)
[2018-11-27] MEDS: QUEtiapine FUMARATE 100 MG TABLET (FP) PO SCH (21:42)
[2018-11-27] MEDS: THIAMINE HCL 100 MG TABLET (FP) PO SCH (21:43)
[2018-11-27] MEDS: ACETAMINOPHEN 325 MG TABLET (FP) PO PRN (21:44)
[2018-11-28] MEDS: IBUPROFEN 600 MG TABLET (FP) PO PRN ×3 (00:28→17:36)
[2018-11-28] MEDS: CYCLOBENZAPRINE HCL 10 MG TABLET (FP) PO SCH ×2 (11:21→17:37)
[2018-11-28] MEDS: PRENATAL VITAMINS W/ FOLIC ACID TABLET (FP) PO SCH (11:21)
[2018-11-28] MEDS: HYDROCORTISONE 1% TOPICAL OINT 30 GM TUBE TP SCH ×2 (11:22→22:09)
[2018-11-28] MEDS: NICOTINE 14 MG/24 HOURS TOPICAL PATCH TD SCH (11:22)
[2018-11-28] MEDS: THIAMINE HCL 100 MG TABLET (FP) PO SCH (22:09)
[2018-11-28] MEDS: QUEtiapine FUMARATE 100 MG TABLET (FP) PO SCH (22:09)
[2018-11-29] MEDS: CYCLOBENZAPRINE HCL 10 MG TABLET (FP) PO SCH ×2 (10:21→18:09)
[2018-11-29] MEDS: NICOTINE 14 MG/24 HOURS TOPICAL PATCH TD SCH (10:22)
[2018-11-29] MEDS: HYDROCORTISONE 1% TOPICAL OINT 30 GM TUBE TP SCH ×2 (10:22→22:10)
[2018-11-29] MEDS: PRENATAL VITAMINS W/ FOLIC ACID TABLET (FP) PO SCH (10:22)
[2018-11-29] MEDS: THIAMINE HCL 100 MG TABLET (FP) PO SCH (22:11)
[2018-11-29] MEDS: QUEtiapine FUMARATE 100 MG TABLET (FP) PO SCH (22:11)
[2018-11-29] MEDS: IBUPROFEN 600 MG TABLET (FP) PO PRN (22:11)
[2018-11-30 07:19] VITALS: BP 136/85; PULSE 97; TEMP 97.7
--- NOTE | 2018-11-30 07:54 | PN ---
[facility] Progress Note Note: Patient is scheduled for discharged today. Script for 30 days supply of Seroquel 100 mg po HS electronically transmitted to [facility] at [address] [place] [phone]
[2018-11-30] MEDS: CYCLOBENZAPRINE HCL 10 MG TABLET (FP) PO SCH (10:28)
[2018-11-30] MEDS: NICOTINE 14 MG/24 HOURS TOPICAL PATCH TD SCH (10:28)
[2018-11-30] MEDS: HYDROCORTISONE 1% TOPICAL OINT 30 GM TUBE TP SCH (10:28)
[2018-11-30] MEDS: PRENATAL VITAMINS W/ FOLIC ACID TABLET (FP) PO SCH (10:29)
[2018-11-30] MEDS: IBUPROFEN 600 MG TABLET (FP) PO PRN (10:29)
--- NOTE | 2018-11-30 10:54 | PN ---
S Progress Note Note: PT COMPLETED REHAB AND DISCHARGED TODAY. PT MET WITH HIS COUNSELOR, MS BREE SHARP TODAY AND WAS REFERRED TO [facility] CD TREATMENT ON [address] [place] [address]. PT REPORTS PRIMARY CARE AT [facility] NEEDED. [facility] ELECTRONICALLY SENT BELOW TO [facility]. PT IS ALERT O X 3. DENIES S/H/ I. Home Medications Medication Instructions Recorded Albuterol Sulfate Inhaler - 2 inh PO Q4H PRN #1 inhaler 11/30/18 [Ventolin HFA Inhaler -] Ibuprofen [Motrin -] 600 mg PO Q6H PRN #30 tablet 11/30/18 Quetiapine Fumarate [Seroquel] 100 mg PO HS #30 tablet 11/30/18 Vital Signs (72 hours) 11/28/18 11/28/18 11/29/18 03:30 07:00 00:30 Temperature 97.6 F Pulse Rate 92 H Respiratory 18 18 18 Rate Blood Pressure 143/90 11/29/18 11/29/18 11/30/18 03:30 06:48 03:30 Temperature Pulse Rate Respiratory 18 18 18 Rate Blood Pressure 11/30/18 07:18 Temperature 97.7 F Pulse Rate 97 H Respiratory 18 Rate Blood Pressure 136/85 NAD MEDICALLY STABLE. PLAN:FOLLOW UP WITH CD AFTERCARE REFERRAL ON 12/01/18 AT 10:00 A.M FOLLOW UP WITH PRIMARY CARE WITHIN 1-2 WEEKS AFTER DISCHARGE Current Active Problems Alcohol dependence (Chronic) Cocaine dependence (Chronic) Cannabis dependence (Chronic) Nicotine dependence (Chronic) Bronchial asthma (Chronic) GERD (gastroesophageal reflux disease) (Resolved)
== END 2018-11-30 11:00 | disposition home or self-care (01) | DRG 772 ==
LOC: YASAS 19:56 → Y5N 19:57
PROVIDERS: ADMIT Neuromusculoskeletal Medicine & OMM; ATTEND Neuromusculoskeletal Medicine & OMM
PROC: HZ42ZZZ Group Counseling for Substance Abuse Treatment, Cognitive-Behavioral (ICD-10-PCS; principal; 2018-11-02)
DX: F10.20 Alcohol dependence, uncomplicated (principal); F14.20 Cocaine dependence, uncomplicated; F12.20 Cannabis dependence, uncomplicated; F17.210 Nicotine dependence, cigarettes, uncomplicated; F19.24 Other psychoactive substance dependence with psychoactive substance-induced mood disorder; F19.282 Other psychoactive substance dependence with psychoactive substance-induced sleep disorder; F39 Unspecified mood [affective] disorder; J45.909 Unspecified asthma, uncomplicated; K21.9 Gastro-esophageal reflux disease without esophagitis; L30.9 Dermatitis, unspecified; M25.511 Pain in right shoulder

== ENCOUNTER 2019-07-08 15:00 | Inpatient (IN) | payer OTHER ==
[2019-07-08 19:49] VITALS: BMI 22.1
--- NOTE | 2019-07-08 20:17 | HP ---
CIWA Score Nausea/Vomitin-No Nausea/No Vomiting Muscle Tremors: 4-Moderate,w/Arms Extend Anxiety: 4-Mod. Anxious/Guarded Agitation: 4-Moderately Restless Paroxysmal Sweats: 3 Orientation: 3-Disoriented Date>2 days Tacttile Disturbances: 0-None Auditory Disturbances: 0-None Visual Disturbances: 2-Mild Sensitivity (to light) Headache: 0-None Present CIWA-Ar Total Score: 20 - Admission Criteria OASAS Guidelines: Admission for Medically Managed Detox: Requires at least one of the followin. CIWA greater than 12 2. Seizures within the past 24 hours 3. Delirium tremens within the past 24 hours 4. Hallucinations within the past 24 hours 5. Acute intervention needed for co occurring medical disorder 6. Acute intervention needed for co occurring psychiatric disorder 7. Severe withdrawal that cannot be handled at a lower level of care (continued vomiting, continued diarrhea, abnormal vital signs) requiring intravenous medication and/or fluids 8. Admitting History and Physical - Smoking History Smoking history: Current every day smoker Have you smoked in the past 12 months: Yes Aproximately how many cigarettes per day: 20 - Alcohol/Substance Use Hx Alcohol Use: Yes Admission ROS [facility] Chief Complaint: C/O WITHDRAWAL SX'S Allergies/Adverse Reactions: Allergies Allergy/AdvReac Type Severity Reaction Status Date / Time shellfish derived Allergy Severe Swelling Verified 07/08/19 19:32 History of Present Illness: HERE FOR DETOX. CLIENT IS SELF REFERRED. LAST HERE 10/2018. REPORTS RELAPSING IMMEDIATELY AFTER DC. DRINKING ALCOHOL AT MIN 1 PINT DAILY. 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 PRESENTS WITH C/O WITHDRAWAL SX'S. CLIENT STATES LAST ATTEMPTED DETOX 2 MONTHS AGO BUT ALSO RELAPSED SOON AFTER DC. + BLACK OUTS, DENIES SEIZURES, AVH, . REPORTS LONGEST CLEAN TIME 1.7 YEARS BUT NO CLEAN TIME IN THE PAST 20+ YEARS. LIVES WITH FAMILY, EMPLOYED A [employer] IN A [employer], DENIES LEGALS Exam Limitations: No Limitations - Ebola screening Have you traveled outside of the country in the last 21 days: No Have you had contact with anyone from an Ebola affected area: No Have you been sick,other than usual withdrawal symptoms: No Do you have a fever: No - Review of Systems Constitutional: Chills, Loss of Appetite, Night Sweats, Changes in sleep, Unintentional Wgt. Loss EENT: reports: No Symptoms Reported Respiratory: reports: No Symptoms reported Cardiac: reports: No Symptoms Reported GI: reports: Diarrhea, Poor Appetite, Poor Fluid Intake, Vomiting : reports: No Symptoms Reported Musculoskeletal: reports: No Symptoms Reported Integumentary: reports: No Symptoms Reported Neuro: reports: Other (BLACK OUTS) Endocrine: reports: No Symptoms Reported Hematology: reports: No Symptoms Reported Psychiatric: reports: Agitated (IRRITABLE), Anxious, Depressed (DENIES SI) Other Systems: Reviewed and Negative Patient History - Patient Medical History Hx Anemia: No Hx Asthma: Yes Hx Chronic Obstructive Pulmonary Disease (COPD): No Hx Cancer: No Hx Cardiac Disorders: No Hx Congestive Heart Failure: No Hx Hypertension: No Hx Hypercholesterolemia: No Hx Pacemaker: No HX Cerebrovascular Accident: No Hx Seizures: No Hx Dementia: No Hx Diabetes: No Hx Gastrointestinal Disorders: No Hx Liver Disease: No Hx Genitourinary Disorders: No Hx Sexually Transmitted Disorders: Yes (Syphillis treated ) Hx Renal Disease (ESRD): No Hx Thyroid Disease: No Hx Human Immunodeficiency Virus (HIV): No Hx Depression: Yes Hx Suicide Attempt: Yes (Tried to overdose 10 yrs ago.) Hx Bipolar Disorder: Yes Hx Schizophrenia: No Other Medical History: DENIES - Patient Surgical History Past Surgical History: No Hx Neurologic Surgery: No Hx Cataract Extraction: No Hx Cardiac Surgery: No Hx Lung Surgery: No Hx Breast Surgery: No Hx Breast Biopsy: No Hx Abdominal Surgery: No Hx Appendectomy: No Hx Cholecystectomy: No Hx Genitourinary Surgery: No Hx Section: No Hx Orthopedic Surgery: No Anesthesia Reaction: No - PPD History Previous Implant?: Yes Documented Results: Negative w/proof Implanted On Prior [facility] Admission?: Yes Date: 10/31/18 Results: 0 mm. PPD to be Administered?: No - Smoking Cessation Smoking history: Current every day smoker Have you smoked in the past 12 months: Yes Aproximately how many cigarettes per day: 20 Cigars Per Day: 0 Hx Chewing Tobacco Use: No Initiated information on smoking cessation: Yes 'Breaking Loose' booklet given: 07/08/19 - Substance & Tx. History Hx Alcohol Use: Yes Hx Substance Use: Yes Substance Use Type: Alcohol, Cocaine, Marijuana Hx Substance Use Treatment: Yes ([facility]) - Substances abused Alcohol Substance route: Oral Frequency: Daily Amount used: $20 Age of first use: 17 Date of last use: 07/08/19 Cocaine Other (specify): sniff Frequency: Daily Amount used: $50 Age of first use: 25 Date of last use: 07/08/19 Marijuana/Hashish Substance route: Smoking Frequency: Daily Amount used: $20-30 Age of first use: 12 Date of last use: 07/08/19 Admission Physical Exam S - Vital Signs Vital Signs: Vital Signs - 24 hr 07/08/19 19:31 Temperature 95.5 F L Pulse Rate 84 Respiratory 18 Rate Blood Pressure 113/78 - Physical General Appearance: Yes: Moderate Distress, Irritable, Sweating, Anxious HEENTM: Yes: EOMI, Normocephalic, Normal Voice, NONA, Pharynx Normal, Other ( POOR DENTITION, MISSING TEETH) Respiratory: Yes: Chest Non-Tender, Lungs Clear, Normal Breath Sounds, No Respiratory Distress, No Accessory Muscle Use Neck: Yes: No masses,lesions,Nodules, Supple, Trachea in good position Breast: Yes: Breast Exam Deferred Cardiology: Yes: Regular Rhythm, Regular Rate, S1, S2 Abdominal: Yes: Non Tender, Flat, Increased Bowel Sounds, Decreased BS Genitourinary: Yes: Within Normal Limits Back: Yes: Normal Inspection Musculoskeletal: Yes: full range of Motion, Gait Steady Extremities: Yes: Normal Capillary Refill, Normal Range of Motion, Non-Tender Neurological: Yes: Alert, Motor Strength 5/5, Disoriented (TO DATE), Depressed Affect Integumentary: Yes: Warm, Moist Lymphatic: Yes: Within Normal Limits - Diagnostic (1) At risk for dehydration due to poor fluid intake Current Visit: No Status: Acute (2) Substance induced mood disorder Current Visit: No Status: Acute (3) Substance-induced sleep disorder Current Visit: No Status: Acute (4) Alcohol dependence with withdrawal Current Visit: No Status: Chronic Qualifiers: Complication of substance-induced condition: uncomplicated Qualified Code(s ): F10.230 - Alcohol dependence with withdrawal, uncomplicated (5) Asthma Current Visit: No Status: Chronic Qualifiers: Asthma severity: mild Asthma persistence: unspecified Asthma complication type: unspecified Qualified Code(s): J45.909 - Unspecified asthma , uncomplicated (6) Cannabis dependence Current Visit: No Status: Chronic (7) Cocaine dependence Current Visit: No Status: Chronic Qualifiers: Substance use status: uncomplicated Qualified Code(s): F14.20 - Cocaine dependence, uncomplicated (8) GERD (gastroesophageal reflux disease) Current Visit: No Status: Chronic Qualifiers: Esophagitis presence: without esophagitis Qualified Code(s): K21.9 - Gastro -esophageal reflux disease without esophagitis (9) Nicotine dependence Current Visit: No Status: Chronic Qualifiers: Nicotine product type: cigarettes Substance use status: uncomplicated Qualified Code(s): F17.210 - Nicotine dependence, cigarettes, uncomplicated Cleared for Admission S - Detox or Rehab [facility] Level of Care: Medically Managed Detox Regimen/Protocol: Librium Claeared for Rehab Admission: No Breathalyzer - Breathalyzer Breathalyzer: 0 Urine Drug Screen - Test Device Lot number: [id number] Expiration date: 02/28/21 - Control Is test valid?: No - Results Urine drug screen results: THC-Marijuana, GINO-Cocaine Inpatient Rehab Admission - Rehab Decision to Admit Inpatient rehab admission?: No
[2019-07-08] MEDS ORDERED: DICYCLOMINE HCL 10 MG CAPSULE PO PRN (20:20)
[2019-07-08] MEDS ORDERED: MAGNESIUM HYDROX 2400MG/30ML ORAL SUSPENSION 30 ML CUP PO PRN (20:20)
[2019-07-08] MEDS ORDERED: BISMUTH SUBSALICYLATE 524 MG/30 ML UD PO PRN (20:20)
[2019-07-08] MEDS ORDERED: ALBUTEROL SO4 8 GM HFA INHALER IH PRN (20:20)
[2019-07-08] MEDS ORDERED: IBUPROFEN 400 MG TABLET (FP) PO PRN (20:20)
[2019-07-08] MEDS ORDERED: METHOCARBAMOL 500 MG TABLET PO PRN (20:20)
[2019-07-08] MEDS ORDERED: guaiFENesin 200 MG/10 ML 10 ML UNIT-DOSE CUPS PO PRN (20:20)
[2019-07-08] MEDS ORDERED: hydrOXYzine PAMOATE 25 MG CAPSULE (FP) PO PRN (20:20)
[2019-07-08] MEDS ORDERED: MAGNESIUM CITRATE 300 ML BOTTLE PO PRN (20:20)
[2019-07-08] MEDS ORDERED: MENTHOL/PHENOL 1 EACH UD MM PRN (20:20)
[2019-07-08] MEDS ORDERED: MAG HYDROX/AL HYDROX/SIMETH 30 ML UNIT-DOSE CUP PO PRN (20:20)
[2019-07-08] MEDS ORDERED: P-EPHED 60MG/TRIPROLIDI 2.5MG TABLET PO PRN (20:20)
[2019-07-08] MEDS ORDERED: ONDANSETRON *ODT* 4 MG TABLET SL PRN (20:20)
[2019-07-08] MEDS ORDERED: ACETAMINOPHEN 325 MG TABLET (FP) PO PRN ×2 (20:20)
[2019-07-08] MEDS ORDERED: NICOTINE POLACRILEX 2 MG GUM BUC PRN (20:20)
[2019-07-08] MEDS ORDERED: chlordiazePOXIDE HCL 10 MG CAPSULE PO PRN (20:20)
[2019-07-08] MEDS: chlordiazePOXIDE HCL 25 MG CAPSULE PO SCH (21:28)
[2019-07-08] MEDS: THIAMINE HCL 100 MG TABLET (FP) PO SCH (21:28)
[2019-07-08] MEDS: MELATONIN 5 MG TABLETS PO PRN (21:29)
[2019-07-09] MEDS: chlordiazePOXIDE HCL 25 MG CAPSULE PO SCH ×3 (06:44→22:06)
[2019-07-09 10:06] LABS: BILIRUBIN,TOTAL 0.2 mg/dL (0.2-1); BLOOD UREA NITROGEN 12.9 mg/dL (7-18); CALCIUM 8.4 mg/dL (8.5-10.1); CREATININE 1.1 mg/dL (0.55-1.3); POTASSIUM 4.1 mmol/L (3.5-5.1); TOT PROT 5.6 g/dl (6.4-8.2)
[2019-07-09 10:07] LABS: HEMATOCRIT 46.2 % (35.4-49); HEMOGLOBIN 16.1 GM/dL (11.7-16.9); MCH 35.4 pg (25.7-33.7); MCHC 34.7 g/dl (32.0-35.9); MEAN PLT VOLUME 8.2 fl (7.5-11.1); PLATELET COUNT 223 K/MM3 (134-434); RBC 4.53 M/mm3 (4.00-5.60); WHITE BLOOD COUNT 3.5 K/mm3 (4.0-10.0)
[2019-07-09] MEDS: PRENATAL VITAMINS W/ FOLIC ACID TABLET (FP) PO SCH (10:26)
[2019-07-09] MEDS: NICOTINE 21 MG/24 HOURS TOPICAL PATCH TD SCH (10:27)
--- NOTE | 2019-07-09 11:49 | CONSULT ---
[facility] Psychiatric Consult - Data Date of interview: 07/09/19 Admission source: [facility] Identifying data: Readmission to [facility] for this 49 y/o AA male self- referred for detoxification (KERVIN issues : alcohol, cannabis, cocaine, nicotine) . Interviewed at [address] [place] [address]. Patient is single, a father of five, domiciled and reportedly employed. Substance Abuse History: Discussed in this session. Details in current [facility] reports as follows : Smoking history: Current every day smoker. Have you smoked in the past 12 months: Yes. Aproximately how many cigarettes per day: 20. Cigars Per Day: 0. Hx Chewing Tobacco Use: No. Initiated information on smoking cessation: Yes. 'Breaking Loose' booklet given: 07/08/19. - Substance & Tx. History. Hx Alcohol Use: Yes. Hx Substance Use: Yes. Substance Use Type : Alcohol, Cocaine, Marijuana. Hx Substance Use Treatment: Yes ([facility]). - Substances abused. Alcohol. Substance route: Oral. Frequency: Daily. Amount used: $20. Age of first use: 17. Date of last use: 07/08/19. Cocaine. Other (specify): sniff. Frequency: Daily. Amount used: $50. Age of first use: 25. Date of last use: 07/08/19. Marijuana/Hashish. Substance route: Smoking. Frequency: Daily. Amount used: $20-30. Age of first use: 12. Date of last use: 07/08/19 Medical History: Medical history if remarkable for bronchial asthma, GERD and past treatment for syphilis. Psychiatric History: No reported history of psychiatric hospitalizations. " They usually keep me under observation for a few hours and they release me after a day or two from the emergency room." Patient has received the diagnosis of Bipolar Disorder (early s) during his enlistment in the [employer]. Mr Luciano reports that he stopped taking medications years ago (used to be on seroquel). No formal psychiatric OPD care for years. Endorses a remote history (20 years ago) of two suicide attempts (self-mutilation : cutting his wrist + overdose with medications). Physical/Sexual Abuse/Trauma History: Patient denies. Additional Comment: Urine drug screen results: THC-Marijuana, GINO-Cocaine. Noted. Mental Status Exam - Mental Status Exam Alert and Oriented to: Time, Place, Person Cognitive Function: Good Patient Appearance: Well Groomed Mood: Withdrawn Affect: Mood Congruent, Constricted Patient Behavior: Fatigued, Cooperative Speech Pattern: Clear, Appropriate Voice Loudness: Normal Thought Process: Intact, Goal Oriented Thought Disorder: Not Present Hallucinations: Denies Suicidal Ideation: Denies Homicidal Ideation: Denies Insight/Judgement: Poor Sleep: Fair Appetite: Good Muscle strength/Tone: Normal (no complaint offered) Gait/Station: Other (not observed; patient resting in bed during entire length of interview) Psychiatric Findings - Problem List ([place] 1, 2,3) (1) Alcohol dependence with withdrawal Current Visit: Yes Status: Acute Qualifiers: Complication of substance-induced condition: uncomplicated Qualified Code(s ): F10.230 - Alcohol dependence with withdrawal, uncomplicated (2) Cannabis dependence Current Visit: Yes Status: Chronic (3) Cocaine dependence Current Visit: Yes Status: Chronic Qualifiers: Substance use status: uncomplicated Qualified Code(s): F14.20 - Cocaine dependence, uncomplicated (4) Nicotine dependence Current Visit: Yes Status: Chronic Qualifiers: Nicotine product type: cigarettes Substance use status: uncomplicated Qualified Code(s): F17.210 - Nicotine dependence, cigarettes, uncomplicated (5) Substance induced mood disorder Current Visit: Yes Status: Chronic (6) History of bipolar disorder Current Visit: Yes Status: Chronic Comment: As per self-report and records. Non-compliant with OPD care for several years. (7) Non-compliance Current Visit: Yes Status: Chronic - Initial Treatment Plan Initial Treatment Plan: Psychoeducation. Sleep hygiene. Detoxification. MAT services discussed in this session : patient declines. AA meetings. Mr Infante declines to resume quetiapine. Patient is asymptomatic for eduardo, psychosis or depression. Mental status is stable. Observation.
--- NOTE | 2019-07-09 13:01 | PN ---
S CIWA - CIWA Score Nausea/Vomitin-Mild Nausea/No Vomiting Muscle Tremors: 2 Anxiety: 2 Agitation: 2 Paroxysmal Sweats: No Perspiration Orientation: 0-Oriented Tacttile Disturbances: 1-Very Mild Itch/Numbness Auditory Disturbances: 0-None Visual Disturbances: 0-None Headache: 2-Mild CIWA-Ar Total Score: 10 S Progress Note (SOAP) Subjective: alert,irritable,anxious,interrupted sleep,tremor Objective: 07/09/19 13:00 Vital Signs Temperature 97.2 F L 07/09/19 09:06 Pulse Rate 76 07/09/19 09:06 Respiratory Rate 18 07/09/19 09:06 Blood Pressure 114/80 07/09/19 09:06 O2 Sat by Pulse Oximetry (%) Laboratory Last Values WBC 3.5 K/mm3 (4.0-10.0) L 07/09/19 08:00 RBC 4.53 M/mm3 (4.00-5.60) 07/09/19 08:00 Hgb 16.1 GM/dL (11.7-16.9) 07/09/19 08:00 Hct 46.2 % (35.4-49) 07/09/19 08:00 MCV 102.0 fl (80-96) H 07/09/19 08:00 MCH 35.4 pg (25.7-33.7) H 07/09/19 08:00 MCHC 34.7 g/dl (32.0-35.9) 07/09/19 08:00 RDW 12.0 % (11.9-15.9) 07/09/19 08:00 Plt Count 223 K/MM3 (134-434) 07/09/19 08:00 MPV 8.2 fl (7.5-11.1) 07/09/19 08:00 Sodium 142 mmol/L (136-145) 07/09/19 08:00 Potassium 4.1 mmol/L (3.5-5.1) 07/09/19 08:00 Chloride 111 mmol/L (98-107) H 07/09/19 08:00 Carbon Dioxide 26 mmol/L (21-32) 07/09/19 08:00 Anion Gap 5 MMOL/L (8-16) L 07/09/19 08:00 BUN 12.9 mg/dL (7-18) 07/09/19 08:00 Creatinine 1.1 mg/dL (0.55-1.3) 07/09/19 08:00 Est GFR (CKD-EPI)AfAm 92.16 07/09/19 08:00 Est GFR (CKD-EPI)NonAf 79.52 07/09/19 08:00 Random Glucose 80 mg/dL (74-106) 07/09/19 08:00 Calcium 8.4 mg/dL (8.5-10.1) L 07/09/19 08:00 Total Bilirubin 0.2 mg/dL (0.2-1) 07/09/19 08:00 AST 15 U/L (15-37) 07/09/19 08:00 ALT 18 U/L (13-61) 07/09/19 08:00 Alkaline Phosphatase 73 U/L (45-117) 07/09/19 08:00 Total Protein 5.6 g/dl (6.4-8.2) L 07/09/19 08:00 Albumin 3.0 g/dl (3.4-5.0) L 07/09/19 08:00 07/09/19 13:00 other labs pending Assessment: 07/09/19 13:01 withdrawal symptom Plan: continue detox methadone and librium regimen
[2019-07-09 21:37] LABS: PH,URINE 8.5 (5.0-8.0); URINE APPEARANCE CLEAR; URINE BILIRUBIN NEGATIVE (NEGATIVE); URINE COLOR YELLOW; URINE GLUCOSE (UA) NEGATIVE (NEGATIVE); URINE KETONE NEGATIVE (NEGATIVE); URINE LEUK ESTERASE NEGATIVE (NEGATIVE); URINE NITRITE NEGATIVE (NEGATIVE); URINE PROTEIN NEGATIVE (NEGATIVE)
[2019-07-09] MEDS: MELATONIN 5 MG TABLETS PO PRN (22:06)
[2019-07-09] MEDS: THIAMINE HCL 100 MG TABLET (FP) PO SCH (22:06)
[2019-07-10] MEDS: chlordiazePOXIDE 5 MG CAPSULE PO SCH ×3 (06:25→22:37)
[2019-07-10] MEDS: PRENATAL VITAMINS W/ FOLIC ACID TABLET (FP) PO SCH (10:47)
[2019-07-10] MEDS: NICOTINE 21 MG/24 HOURS TOPICAL PATCH TD SCH (10:47)
--- NOTE | 2019-07-10 12:08 | PN ---
S CIWA - CIWA Score Nausea/Vomitin-No Nausea/No Vomiting Muscle Tremors: None Anxiety: 3 Agitation: 1-Slight > Activity Paroxysmal Sweats: 3 Orientation: 0-Oriented Tacttile Disturbances: 0-None Auditory Disturbances: 0-None Visual Disturbances: 0-None Headache: 1-Very Mild CIWA-Ar Total Score: 8 S Progress Note (SOAP) Subjective: c/o sweats, anxiety, and headache. Objective: 07/10/19 12:09 Vital Signs 07/10/19 07/10/19 06:11 09:32 Temperature 96.8 F L 97.4 F L Pulse Rate 63 83 Respiratory 18 18 Rate Blood Pressure 116/77 121/90 Lab Results WBC 3.5 K/mm3 (4.0-10.0) L 07/09/19 08:00 RBC 4.53 M/mm3 (4.00-5.60) 07/09/19 08:00 Hgb 16.1 GM/dL (11.7-16.9) 07/09/19 08:00 Hct 46.2 % (35.4-49) 07/09/19 08:00 MCV 102.0 fl (80-96) H 07/09/19 08:00 MCHC 34.7 g/dl (32.0-35.9) 07/09/19 08:00 RDW 12.0 % (11.9-15.9) 07/09/19 08:00 Plt Count 223 K/MM3 (134-434) 07/09/19 08:00 Sodium 142 mmol/L (136-145) 07/09/19 08:00 Potassium 4.1 mmol/L (3.5-5.1) 07/09/19 08:00 Chloride 111 mmol/L (98-107) H 07/09/19 08:00 Carbon Dioxide 26 mmol/L (21-32) 07/09/19 08:00 Anion Gap 5 MMOL/L (8-16) L 07/09/19 08:00 BUN 12.9 mg/dL (7-18) 07/09/19 08:00 Creatinine 1.1 mg/dL (0.55-1.3) 07/09/19 08:00 Random Glucose 80 mg/dL (74-106) 07/09/19 08:00 Calcium 8.4 mg/dL (8.5-10.1) L 07/09/19 08:00 Labs noted. Assessment: 07/10/19 12:09 AOX3, in no acute respiratory distress. Full rom, ambulating in the unit. Withdrawal symptoms. Plan: continue detox.
[2019-07-10] MEDS: MELATONIN 5 MG TABLETS PO PRN (22:37)
[2019-07-10] MEDS: THIAMINE HCL 100 MG TABLET (FP) PO SCH (22:37)
[2019-07-11] MEDS ORDERED: chlordiazePOXIDE HCL 10 MG CAPSULE PO PRN
[2019-07-11] MEDS: chlordiazePOXIDE HCL 10 MG CAPSULE PO SCH ×3 (05:57→21:46)
[2019-07-11] MEDS: NICOTINE 21 MG/24 HOURS TOPICAL PATCH TD SCH (10:18)
[2019-07-11] MEDS: PRENATAL VITAMINS W/ FOLIC ACID TABLET (FP) PO SCH (10:18)
--- NOTE | 2019-07-11 13:08 | PN ---
S CIWA - CIWA Score Nausea/Vomitin-No Nausea/No Vomiting Muscle Tremors: 1-None Visible, but [place] Anxiety: 2 Agitation: 1-Slight > Activity Paroxysmal Sweats: No Perspiration Orientation: 0-Oriented Tacttile Disturbances: 0-None Auditory Disturbances: 0-None Visual Disturbances: 0-None Headache: 0-None Present CIWA-Ar Total Score: 4 BHS Progress Note (SOAP) Subjective: 49 years old male admitted on 07/08/19 for alcohol withdrawal sx management treated with librium detox regimen feeling better today less tremor sleep better at night Objective: 07/11/19 13:07 Vital Signs Temperature 96.5 F L 07/11/19 13:07 Pulse Rate 103 H 07/11/19 13:07 Respiratory Rate 18 07/11/19 13:07 Blood Pressure 121/76 07/11/19 13:07 O2 Sat by Pulse Oximetry (%) Laboratory Last Values WBC 3.5 K/mm3 (4.0-10.0) L 07/09/19 08:00 RBC 4.53 M/mm3 (4.00-5.60) 07/09/19 08:00 Hgb 16.1 GM/dL (11.7-16.9) 07/09/19 08:00 Hct 46.2 % (35.4-49) 07/09/19 08:00 MCV 102.0 fl (80-96) H 07/09/19 08:00 MCH 35.4 pg (25.7-33.7) H 07/09/19 08:00 MCHC 34.7 g/dl (32.0-35.9) 07/09/19 08:00 RDW 12.0 % (11.9-15.9) 07/09/19 08:00 Plt Count 223 K/MM3 (134-434) 07/09/19 08:00 MPV 8.2 fl (7.5-11.1) 07/09/19 08:00 Sodium 142 mmol/L (136-145) 07/09/19 08:00 Potassium 4.1 mmol/L (3.5-5.1) 07/09/19 08:00 Chloride 111 mmol/L (98-107) H 07/09/19 08:00 Carbon Dioxide 26 mmol/L (21-32) 07/09/19 08:00 Anion Gap 5 MMOL/L (8-16) L 07/09/19 08:00 BUN 12.9 mg/dL (7-18) 07/09/19 08:00 Creatinine 1.1 mg/dL (0.55-1.3) 07/09/19 08:00 Est GFR (CKD-EPI)AfAm 92.16 07/09/19 08:00 Est GFR (CKD-EPI)NonAf 79.52 07/09/19 08:00 Random Glucose 80 mg/dL (74-106) 07/09/19 08:00 Calcium 8.4 mg/dL (8.5-10.1) L 07/09/19 08:00 Total Bilirubin 0.2 mg/dL (0.2-1) 07/09/19 08:00 AST 15 U/L (15-37) 07/09/19 08:00 ALT 18 U/L (13-61) 07/09/19 08:00 Alkaline Phosphatase 73 U/L (45-117) 07/09/19 08:00 Total Protein 5.6 g/dl (6.4-8.2) L 07/09/19 08:00 Albumin 3.0 g/dl (3.4-5.0) L 07/09/19 08:00 Urine Color Yellow 07/09/19 15:44 Urine Appearance Clear 07/09/19 15:44 Urine pH 8.5 (5.0-8.0) H D 07/09/19 15:44 Ur Specific [place] 1.021 (1.010-1.035) 07/09/19 15:44 Urine Protein Negative (NEGATIVE) 07/09/19 15:44 Urine Glucose (UA) Negative (NEGATIVE) 07/09/19 15:44 Urine Ketones Negative (NEGATIVE) 07/09/19 15:44 Urine Blood Negative (NEGATIVE) 07/09/19 15:44 Urine Nitrite Negative (NEGATIVE) 07/09/19 15:44 Urine Bilirubin Negative (NEGATIVE) 07/09/19 15:44 Urine Urobilinogen 1.0 mg/dL (0.2-1.0) 07/09/19 15:44 Ur Leukocyte Esterase Negative (NEGATIVE) 07/09/19 15:44 lab noted Assessment: 07/11/19 13:08 alcohol withdrawal sx Plan: continue librium detox regimen
[2019-07-11] MEDS: MELATONIN 5 MG TABLETS PO PRN (21:46)
[2019-07-11] MEDS: THIAMINE HCL 100 MG TABLET (FP) PO SCH (21:46)
[2019-07-12] MEDS ORDERED: chlordiazePOXIDE HCL 10 MG CAPSULE PO ONE (05:00)
[2019-07-12 09:27] VITALS: BP 104/64; PULSE 85; TEMP 97.9
--- NOTE | 2019-07-12 12:20 | DS ---
[facility] Detox Discharge Summary Admission Date: 07/08/19 Discharge Date: 07/12/19 - History Present History: Alcohol Dependence Additional Comments: 49 years old male admitted on 07/08/19 for alcohol withdrawal sx management treated with librium detox regimen patient is alert oriented x 3 cardiac S1S2 regular rate rhythm respiratory clear lung bilaterally on auscultation abdomen soft no rebound tenderness - Physical Exam Results Vital Signs: Vital Signs Temperature 97.9 F 07/12/19 09:26 Pulse Rate 85 07/12/19 09:26 Respiratory Rate 19 07/12/19 09:26 Blood Pressure 104/64 07/12/19 09:26 O2 Sat by Pulse Oximetry (%) Pertinent Admission Physical Exam Findings: alcohol withdrawal sx Laboratory Last Values WBC 3.5 K/mm3 (4.0-10.0) L 07/09/19 08:00 RBC 4.53 M/mm3 (4.00-5.60) 07/09/19 08:00 Hgb 16.1 GM/dL (11.7-16.9) 07/09/19 08:00 Hct 46.2 % (35.4-49) 07/09/19 08:00 MCV 102.0 fl (80-96) H 07/09/19 08:00 MCH 35.4 pg (25.7-33.7) H 07/09/19 08:00 MCHC 34.7 g/dl (32.0-35.9) 07/09/19 08:00 RDW 12.0 % (11.9-15.9) 07/09/19 08:00 Plt Count 223 K/MM3 (134-434) 07/09/19 08:00 MPV 8.2 fl (7.5-11.1) 07/09/19 08:00 Sodium 142 mmol/L (136-145) 07/09/19 08:00 Potassium 4.1 mmol/L (3.5-5.1) 07/09/19 08:00 Chloride 111 mmol/L (98-107) H 07/09/19 08:00 Carbon Dioxide 26 mmol/L (21-32) 07/09/19 08:00 Anion Gap 5 MMOL/L (8-16) L 07/09/19 08:00 BUN 12.9 mg/dL (7-18) 07/09/19 08:00 Creatinine 1.1 mg/dL (0.55-1.3) 07/09/19 08:00 Est GFR (CKD-EPI)AfAm 92.16 07/09/19 08:00 Est GFR (CKD-EPI)NonAf 79.52 07/09/19 08:00 Random Glucose 80 mg/dL (74-106) 07/09/19 08:00 Calcium 8.4 mg/dL (8.5-10.1) L 07/09/19 08:00 Total Bilirubin 0.2 mg/dL (0.2-1) 07/09/19 08:00 AST 15 U/L (15-37) 07/09/19 08:00 ALT 18 U/L (13-61) 07/09/19 08:00 Alkaline Phosphatase 73 U/L (45-117) 07/09/19 08:00 Total Protein 5.6 g/dl (6.4-8.2) L 07/09/19 08:00 Albumin 3.0 g/dl (3.4-5.0) L 07/09/19 08:00 Urine Color Yellow 07/09/19 15:44 Urine Appearance Clear 07/09/19 15:44 Urine pH 8.5 (5.0-8.0) H D 07/09/19 15:44 Ur Specific [place] 1.021 (1.010-1.035) 07/09/19 15:44 Urine Protein Negative (NEGATIVE) 07/09/19 15:44 Urine Glucose (UA) Negative (NEGATIVE) 07/09/19 15:44 Urine Ketones Negative (NEGATIVE) 07/09/19 15:44 Urine Blood Negative (NEGATIVE) 07/09/19 15:44 Urine Nitrite Negative (NEGATIVE) 07/09/19 15:44 Urine Bilirubin Negative (NEGATIVE) 07/09/19 15:44 Urine Urobilinogen 1.0 mg/dL (0.2-1.0) 07/09/19 15:44 Ur Leukocyte Esterase Negative (NEGATIVE) 07/09/19 15:44 lab noted - Treatment Hospital Course: Detox Protocol Followed, Detoxed Safely, Responded well, Discharged Condition Good, Rehab Referral Accepted Patient has Accepted a Rehab Referral to: community support approach - Medication Discharge Medications: Ambulatory Orders Albuterol Sulfate Inhaler - [Ventolin HFA Inhaler -] 2 inh PO Q4H PRN #1 inhaler 11/30/18 Ibuprofen [Motrin -] 600 mg PO Q6H PRN #30 tablet 11/30/18 Quetiapine Fumarate [Seroquel -] 100 mg PO HS #30 tablet 11/30/18 - Diagnosis (1) Alcohol dependence with withdrawal Status: Acute Qualifiers: Complication of substance-induced condition: uncomplicated Qualified Code(s ): F10.230 - Alcohol dependence with withdrawal, uncomplicated (2) Asthma Status: Chronic Qualifiers: Asthma severity: mild Asthma persistence: unspecified Asthma complication type: unspecified Qualified Code(s): J45.909 - Unspecified asthma , uncomplicated (3) GERD (gastroesophageal reflux disease) Status: Chronic Qualifiers: Esophagitis presence: without esophagitis Qualified Code(s): K21.9 - Gastro -esophageal reflux disease without esophagitis (4) Nicotine dependence Status: Acute Qualifiers: Nicotine product type: cigarettes Substance use status: in withdrawal Qualified Code(s): F17.213 - Nicotine dependence, cigarettes, with withdrawal (5) Substance induced mood disorder Status: Suspected (6) GERD (gastroesophageal reflux disease) Status: Chronic Qualifiers: Esophagitis presence: esophagitis presence not specified Qualified Code(s) : K21.9 - Gastro-esophageal reflux disease without esophagitis - AMA Did Patient Leave Against Medical Advice: No CIWA Score - CIWA Score Nausea/Vomitin-No Nausea/No Vomiting Muscle Tremors: 1-None Visible, but [place] Anxiety: 1-Mildly Anxious Agitation: 0-Normal Activity Paroxysmal Sweats: No Perspiration Orientation: 0-Oriented Tacttile Disturbances: 0-None Auditory Disturbances: 0-None Visual Disturbances: 0-None Headache: 0-None Present CIWA-Ar Total Score: 2
== END 2019-07-12 10:28 | disposition home or self-care (01) | DRG 774 ==
LOC: YASAS 15:00 → Y3N 20:38
PROVIDERS: ADMIT Allergy & Immunology; ATTEND Allergy & Immunology
PROC: HZ2ZZZZ Detoxification Services for Substance Abuse Treatment (ICD-10-PCS; principal; 2019-07-08)
DX: F10.230 Alcohol dependence with withdrawal, uncomplicated (principal); F14.20 Cocaine dependence, uncomplicated; F12.20 Cannabis dependence, uncomplicated; F17.213 Nicotine dependence, cigarettes, with withdrawal; F19.282 Other psychoactive substance dependence with psychoactive substance-induced sleep disorder; F19.24 Other psychoactive substance dependence with psychoactive substance-induced mood disorder; F32.9 Major depressive disorder, single episode, unspecified; J45.909 Unspecified asthma, uncomplicated; K21.9 Gastro-esophageal reflux disease without esophagitis; Z86.19 Personal history of other infectious and parasitic diseases; Z86.59 Personal history of other mental and behavioral disorders; Z91.5 Personal history of self-harm; Z91.013 Allergy to seafood; Z91.19 Patient's noncompliance with other medical treatment and regimen
CPT/HCPCS: 36415; 80053; 81003; 85027

== ENCOUNTER 2021-02-11 19:22 | Inpatient (IN) | payer OTHER ==
[2021-02-11 21:10] VITALS: BMI 25.0
[2021-02-11] MEDS ORDERED: METHOCARBAMOL 500 MG TABLET PO PRN (21:43)
[2021-02-11] MEDS ORDERED: IBUPROFEN 400 MG TABLET (FP) PO PRN (21:43)
[2021-02-11] MEDS ORDERED: ONDANSETRON *ODT* 4 MG TABLET SL PRN (21:43)
[2021-02-11] MEDS ORDERED: MENTHOL/PHENOL 1 EACH UD MM PRN (21:43)
[2021-02-11] MEDS ORDERED: MAG HYDROX/AL HYDROX/SIMETH 30 ML UNIT-DOSE CUP PO PRN (21:43)
[2021-02-11] MEDS ORDERED: NICOTINE POLACRILEX 2 MG GUM BUC PRN (21:43)
[2021-02-11] MEDS ORDERED: ACETAMINOPHEN 325 MG TABLET (FP) PO PRN ×2 (21:43)
[2021-02-11] MEDS ORDERED: MAGNESIUM HYDROX 2400MG/30ML ORAL SUSPENSION 30 ML CUP PO PRN (21:43)
[2021-02-11] MEDS ORDERED: MAGNESIUM CITRATE 300 ML BOTTLE PO PRN (21:43)
[2021-02-11] MEDS ORDERED: BISMUTH SUBSALICYLATE 524 MG/30 ML PO PRN (21:43)
[2021-02-11] MEDS ORDERED: ALBUTEROL SO4 HFA INHALER IH PRN (21:45)
[2021-02-11] MEDS: hydrOXYzine PAMOATE 25 MG CAPSULE (FP) PO SCH (22:48)
[2021-02-11] MEDS: MELATONIN 5 MG TABLETS PO SCH (22:48)
[2021-02-11] MEDS: THIAMINE HCL 100 MG TABLET (FP) PO SCH (22:49)
[2021-02-12] MEDS: hydrOXYzine PAMOATE 25 MG CAPSULE (FP) PO SCH ×2 (06:54→10:18)
[2021-02-12] MEDS ORDERED: diazePAM 5 MG TABLET PO PRN (09:56)
[2021-02-12] MEDS: diazePAM 5 MG TABLET PO SCH ×3 (10:17→22:33)
[2021-02-12] MEDS: PRENATAL VITAMINS W/ FOLIC ACID TABLET (FP) PO SCH (10:18)
[2021-02-12] MEDS ORDERED: hydrOXYzine PAMOATE 25 MG CAPSULE (FP) PO PRN (11:35)
[2021-02-12] MEDS: NICOTINE 21 MG/24 HOURS TOPICAL PATCH TD SCH (11:52)
[2021-02-12] MEDS: MELATONIN 5 MG TABLETS PO SCH (22:34)
[2021-02-12] MEDS: THIAMINE HCL 100 MG TABLET (FP) PO SCH (22:34)
[2021-02-12] MEDS: QUEtiapine FUMARATE 100 MG TABLET (FP) PO SCH (22:34)
[2021-02-13] MEDS: diazePAM 5 MG TABLET PO SCH ×4 (06:44→22:22)
[2021-02-13] MEDS: PRENATAL VITAMINS W/ FOLIC ACID TABLET (FP) PO SCH (10:35)
[2021-02-13] MEDS: NICOTINE 21 MG/24 HOURS TOPICAL PATCH TD SCH (10:38)
[2021-02-13 15:25] LABS: ALBUMIN 3.4 g/dl (3.4-5.0); CALCIUM 9.4 mg/dL (8.5-10.1)
[2021-02-13 15:26] LABS: BLOOD UREA NITROGEN 12.5 mg/dL (7-18)
[2021-02-13 15:30] LABS: BILIRUBIN,TOTAL 0.4 mg/dL (0.2-1); TOT PROT 6.4 g/dl (6.4-8.2)
[2021-02-13 15:39] LABS: HEMATOCRIT 44.5 % (35.4-49); HEMOGLOBIN 15.1 GM/dL (11.7-16.9); MCH 31.7 pg (25.7-33.7); MCHC 33.9 g/dl (32.0-35.9); MEAN CELL VOLUME 93.6 fl (80-96); MEAN PLT VOLUME 7.8 fl (7.5-11.1); PLATELET COUNT 245 10^3/uL (134-434); RBC 4.76 M/mm3 (4.00-5.60); WHITE BLOOD COUNT 3.9 K/mm3 (4.0-10.0)
[2021-02-13] MEDS: QUEtiapine FUMARATE 100 MG TABLET (FP) PO SCH (22:22)
[2021-02-13] MEDS: MELATONIN 5 MG TABLETS PO SCH (22:22)
[2021-02-13] MEDS: THIAMINE HCL 100 MG TABLET (FP) PO SCH (22:22)
[2021-02-14] MEDS: diazePAM 5 MG TABLET PO SCH ×3 (06:11→22:57)
[2021-02-14] MEDS: PRENATAL VITAMINS W/ FOLIC ACID TABLET (FP) PO SCH (10:49)
[2021-02-14] MEDS: NICOTINE 21 MG/24 HOURS TOPICAL PATCH TD SCH (10:49)
[2021-02-14] MEDS: THIAMINE HCL 100 MG TABLET (FP) PO SCH (22:57)
[2021-02-14] MEDS: QUEtiapine FUMARATE 100 MG TABLET (FP) PO SCH (22:57)
[2021-02-14] MEDS: MELATONIN 5 MG TABLETS PO SCH (22:57)
[2021-02-15] MEDS: diazePAM 5 MG TABLET PO SCH ×2 (06:49→17:38)
[2021-02-15] MEDS: PRENATAL VITAMINS W/ FOLIC ACID TABLET (FP) PO SCH ×2 (10:31→11:08)
[2021-02-15] MEDS: NICOTINE 21 MG/24 HOURS TOPICAL PATCH TD SCH ×2 (10:31→11:08)
[2021-02-15] MEDS: MELATONIN 5 MG TABLETS PO SCH (22:58)
[2021-02-15] MEDS: THIAMINE HCL 100 MG TABLET (FP) PO SCH (22:58)
[2021-02-15] MEDS: QUEtiapine FUMARATE 100 MG TABLET (FP) PO SCH (22:58)
[2021-02-16] MEDS ORDERED: diazePAM 5 MG TABLET PO ONE (06:00)
[2021-02-16 08:39] VITALS: BP 126/73; PULSE 64; TEMP 98.1
== END 2021-02-16 09:15 | disposition home or self-care (01) | DRG 774 ==
LOC: YASAS 19:22 → UNDOADMIN 21:43 → Y3N 21:43
PROVIDERS: ADMIT Allergy & Immunology; ATTEND Allergy & Immunology
PROC: HZ2ZZZZ Detoxification Services for Substance Abuse Treatment (ICD-10-PCS; principal; 2021-02-11)
DX: F10.230 Alcohol dependence with withdrawal, uncomplicated (principal); F14.20 Cocaine dependence, uncomplicated; F10.220 Alcohol dependence with intoxication, uncomplicated; F14.220 Cocaine dependence with intoxication, uncomplicated; F17.210 Nicotine dependence, cigarettes, uncomplicated; F19.24 Other psychoactive substance dependence with psychoactive substance-induced mood disorder; F31.9 Bipolar disorder, unspecified; G47.00 Insomnia, unspecified; J45.909 Unspecified asthma, uncomplicated; K21.9 Gastro-esophageal reflux disease without esophagitis; Z91.5 Personal history of self-harm; Z91.013 Allergy to seafood
CPT/HCPCS: 36415; 80053; 85027; 86780; C9803; U0003; U0005

== ENCOUNTER 2021-09-22 10:16 | Inpatient (IN) | payer OTHER ==
[2021-09-22] MEDS ORDERED: IBUPROFEN 400 MG TABLET (FP) PO PRN (10:47)
[2021-09-22] MEDS ORDERED: MENTHOL/PHENOL 1 EACH UD MM PRN (10:47)
[2021-09-22] MEDS ORDERED: LORazepam 1 MG TABLET PO PRN (10:47)
[2021-09-22] MEDS ORDERED: MAGNESIUM HYDROX 2400MG/30ML ORAL SUSPENSION 30 ML CUP PO PRN (10:47)
[2021-09-22] MEDS ORDERED: BISMUTH SUBSALICYLATE 524 MG/30 ML PO PRN (10:47)
[2021-09-22] MEDS ORDERED: ACETAMINOPHEN 325 MG TABLET (FP) PO PRN ×2 (10:47)
[2021-09-22] MEDS ORDERED: ONDANSETRON *ODT* 4 MG TABLET SL PRN (10:47)
[2021-09-22] MEDS ORDERED: NICOTINE 10 MG CARTRIDGE (INHALER) IH PRN (10:47)
[2021-09-22] MEDS ORDERED: MAG HYDROX/AL HYDROX/SIMETH 30 ML UNIT-DOSE CUP PO PRN (10:47)
[2021-09-22] MEDS ORDERED: METHOCARBAMOL 500 MG TABLET PO PRN (10:47)
[2021-09-22] MEDS ORDERED: MAGNESIUM CITRATE 300 ML BOTTLE PO PRN (10:47)
[2021-09-22] MEDS ORDERED: ALBUTEROL SO4 HFA INHALER IH PRN (10:50)
[2021-09-22 11:04] VITALS: BMI 23.1
[2021-09-22] MEDS ORDERED: LORazepam 2 MG TABLET PO ONE (11:30)
[2021-09-22] MEDS: NICOTINE 21 MG/24 HOURS TOPICAL PATCH TD SCH (12:09)
[2021-09-22] MEDS: PRENATAL VITAMINS W/ FOLIC ACID TABLET (FP) PO SCH (12:12)
[2021-09-22] MEDS: hydrOXYzine PAMOATE 25 MG CAPSULE (FP) PO SCH ×3 (14:10→22:46)
[2021-09-22] MEDS: LORazepam 2 MG TABLET PO SCH ×2 (18:09→22:46)
[2021-09-22] MEDS ORDERED: MELATONIN 5 MG TABLETS PO SCH (22:00)
[2021-09-22] MEDS: THIAMINE HCL 100 MG TABLET (FP) PO SCH (22:46)
[2021-09-23] MEDS: LORazepam 2 MG TABLET PO SCH ×4 (06:29→22:26)
[2021-09-23] MEDS: hydrOXYzine PAMOATE 25 MG CAPSULE (FP) PO SCH ×5 (06:29→22:25)
[2021-09-23] MEDS: PRENATAL VITAMINS W/ FOLIC ACID TABLET (FP) PO SCH (10:36)
[2021-09-23] MEDS: NICOTINE 21 MG/24 HOURS TOPICAL PATCH TD SCH (10:38)
[2021-09-23 11:13] LABS: HEMOGLOBIN 17.4 GM/dL (11.7-16.9); MCH 34.3 pg (25.7-33.7); MCHC 34.1 g/dl (32.0-35.9); MEAN CELL VOLUME 100.7 fl (80-96); MEAN PLT VOLUME 8.1 fl (7.5-11.1); PLATELET COUNT 216 10^3/uL (134-434); RBC 5.06 M/mm3 (4.00-5.60); RDW 14.4 % (11.9-15.9); WHITE BLOOD COUNT 3.9 K/mm3 (4.0-10.0)
[2021-09-23 11:24] LABS: ALBUMIN 3.3 g/dl (3.4-5.0); BLOOD UREA NITROGEN 11.5 mg/dL (7-18)
[2021-09-23 11:25] LABS: CREATININE 1.1 mg/dL (0.55-1.3)
[2021-09-23 11:27] LABS: BILIRUBIN,TOTAL 0.9 mg/dL (0.2-1); TOT PROT 6.3 g/dl (6.4-8.2)
[2021-09-23] MEDS: THIAMINE HCL 100 MG TABLET (FP) PO SCH (22:25)
[2021-09-23] MEDS: QUEtiapine FUMARATE 100 MG TABLET (FP) PO SCH (22:25)
[2021-09-24] MEDS: LORazepam 1 MG TABLET PO SCH ×4 (07:02→22:06)
[2021-09-24] MEDS: hydrOXYzine PAMOATE 25 MG CAPSULE (FP) PO SCH ×5 (07:02→22:06)
[2021-09-24] MEDS: PRENATAL VITAMINS W/ FOLIC ACID TABLET (FP) PO SCH (10:22)
[2021-09-24] MEDS: NICOTINE 21 MG/24 HOURS TOPICAL PATCH TD SCH (10:23)
[2021-09-24] MEDS: QUEtiapine FUMARATE 100 MG TABLET (FP) PO SCH (22:06)
[2021-09-24] MEDS: THIAMINE HCL 100 MG TABLET (FP) PO SCH (22:09)
[2021-09-25] MEDS ORDERED: LORazepam 0.5 MG TABLET PO PRN
[2021-09-25] MEDS ORDERED: LORazepam 0.5 MG TABLET PO SCH (05:00)
[2021-09-25] MEDS: hydrOXYzine PAMOATE 25 MG CAPSULE (FP) PO SCH (06:03)
[2021-09-25 09:05] VITALS: BP 127/65; PULSE 112; TEMP 97.5
[2021-09-26] MEDS ORDERED: LORazepam 0.5 MG TABLET PO ONE (05:00)
== END 2021-09-25 09:00 | disposition home or self-care (01) | DRG 774 ==
LOC: YASAS 10:16 → Y3N 10:55
PROVIDERS: ADMIT Allergy & Immunology; ATTEND Allergy & Immunology
PROC: HZ2ZZZZ Detoxification Services for Substance Abuse Treatment (ICD-10-PCS; principal; 2021-09-22)
DX: F10.230 Alcohol dependence with withdrawal, uncomplicated (principal); F14.20 Cocaine dependence, uncomplicated; F12.20 Cannabis dependence, uncomplicated; F17.210 Nicotine dependence, cigarettes, uncomplicated; F19.282 Other psychoactive substance dependence with psychoactive substance-induced sleep disorder; F39 Unspecified mood [affective] disorder; G47.00 Insomnia, unspecified; J45.909 Unspecified asthma, uncomplicated; K21.9 Gastro-esophageal reflux disease without esophagitis; M19.041 Primary osteoarthritis, right hand; M19.042 Primary osteoarthritis, left hand; Z86.19 Personal history of other infectious and parasitic diseases
CPT/HCPCS: 36415; 80053; 85027; 86780; C9803; U0003; U0005

== ENCOUNTER 2022-11-30 11:59 | Inpatient (IN) | payer OTHER ==
[2022-11-30 15:04] VITALS: BMI 23.3
[2022-11-30] MEDS ORDERED: NALOXONE HCL (KLOXXADO) 8 MG SPRAY NS PRN (16:04)
[2022-11-30] MEDS ORDERED: hydrOXYzine PAMOATE 25 MG CAPSULE (FP) PO PRN (16:04)
[2022-11-30] MEDS ORDERED: MAGNESIUM HYDROX 2400MG/30ML ORAL SUSPENSION 30 ML CUP PO PRN (16:04)
[2022-11-30] MEDS ORDERED: POLYETHYLENE GLYCOL (HEALTHYLAX) 3350 17 GM PACKET PO PRN (16:04)
[2022-11-30] MEDS ORDERED: BENZONATATE 200 MG CAPSULE PO PRN (16:04)
[2022-11-30] MEDS ORDERED: IBUPROFEN 600 MG TABLET (FP) PO PRN (16:04)
[2022-11-30] MEDS ORDERED: IBUPROFEN 400 MG TABLET (FP) PO PRN (16:04)
[2022-11-30] MEDS ORDERED: guaiFENesin 600 MG TABLET.ER (FP) PO PRN (16:04)
[2022-11-30] MEDS ORDERED: ACETAMINOPHEN 325 MG TABLET (FP) PO PRN (16:04)
[2022-11-30] MEDS ORDERED: BENZOCAINE/MENTHOL (CHLORASEPTIC ) LOZENGE MM PRN (16:04)
[2022-11-30] MEDS ORDERED: BISMUTH SUBSALICYLATE 524 MG/30 ML PO PRN (16:04)
[2022-11-30] MEDS ORDERED: DICYCLOMINE HCL 10 MG CAPSULE PO PRN (16:04)
[2022-11-30] MEDS ORDERED: ONDANSETRON *ODT* 4 MG TABLET SL PRN (16:04)
[2022-11-30] MEDS ORDERED: MAG HYDROX/AL HYDROX/SIMETH 30 ML UNIT-DOSE CUP PO PRN (16:04)
[2022-11-30] MEDS ORDERED: NALOXONE HCL 0.4 MG/ML VIAL IM PRN (16:04)
[2022-11-30] MEDS ORDERED: NICOTINE 10 MG CARTRIDGE (INHALER) IH PRN (16:04)
[2022-11-30] MEDS ORDERED: LOPERAMIDE HCL 2 MG CAPSULE PO PRN (16:04)
[2022-11-30] MEDS ORDERED: ALBUTEROL SO4 HFA INHALER IH PRN (16:07)
[2022-11-30] MEDS: MELATONIN 5 MG TABLETS PO SCH (22:38)
[2022-11-30] MEDS: THIAMINE HCL 100 MG TABLET (FP) PO SCH (22:38)
[2022-12-01] MEDS: PRENATAL VITAMINS W/ FOLIC ACID TABLET (FP) PO SCH (10:19)
[2022-12-01] MEDS ORDERED: chlordiazePOXIDE HCL 25 MG CAPSULE PO PRN (10:20)
[2022-12-01] MEDS: NICOTINE 14 MG/24 HOURS TOPICAL PATCH TD SCH (10:48)
[2022-12-01] MEDS: chlordiazePOXIDE HCL 25 MG CAPSULE PO SCH ×3 (10:48→22:50)
[2022-12-01 11:48] LABS: HEMATOCRIT 42.6 % (35.4-49); MCH 32.8 pg (25.7-33.7); MCHC 35.3 g/dl (32.0-35.9); MEAN CELL VOLUME 92.9 fl (80-96); MEAN PLT VOLUME 8.5 fl (7.5-11.1); PLATELET COUNT 241 10^3/uL (134-434); RBC 4.59 M/mm3 (4.00-5.60); WHITE BLOOD COUNT 3.7 K/mm3 (4.0-10.0)
[2022-12-01 11:58] LABS: BLOOD UREA NITROGEN 16.4 mg/dL (7-18)
[2022-12-01 11:59] LABS: ALBUMIN 3.2 g/dl (3.4-5.0)
[2022-12-01 12:00] LABS: CREATININE 1.1 mg/dL (0.55-1.3)
[2022-12-01 12:01] LABS: BILIRUBIN,TOTAL 0.6 mg/dL (0.2-1)
[2022-12-01 12:02] LABS: TOT PROT 6.3 g/dl (6.4-8.2)
[2022-12-01] MEDS: MELATONIN 5 MG TABLETS PO SCH (22:50)
[2022-12-01] MEDS: THIAMINE HCL 100 MG TABLET (FP) PO SCH (22:51)
[2022-12-02] MEDS: chlordiazePOXIDE HCL 25 MG CAPSULE PO SCH ×4 (06:00→22:40)
[2022-12-02] MEDS: PRENATAL VITAMINS W/ FOLIC ACID TABLET (FP) PO SCH (10:33)
[2022-12-02] MEDS: NICOTINE 14 MG/24 HOURS TOPICAL PATCH TD SCH (10:44)
[2022-12-02] MEDS: BACITRACIN 0.9 GM PACKET TP SCH (19:15)
[2022-12-02] MEDS: MELATONIN 5 MG TABLETS PO SCH (22:40)
[2022-12-02] MEDS: THIAMINE HCL 100 MG TABLET (FP) PO SCH (22:40)
[2022-12-03] MEDS: chlordiazePOXIDE HCL 10 MG CAPSULE PO SCH ×4 (05:57→22:02)
[2022-12-03] MEDS: METHOCARBAMOL 500 MG TABLET PO PRN ×2 (10:39→22:03)
[2022-12-03] MEDS: NICOTINE 14 MG/24 HOURS TOPICAL PATCH TD SCH (10:39)
[2022-12-03] MEDS: BACITRACIN 0.9 GM PACKET TP SCH (10:39)
[2022-12-03] MEDS: PRENATAL VITAMINS W/ FOLIC ACID TABLET (FP) PO SCH (10:39)
[2022-12-03] MEDS: MELATONIN 5 MG TABLETS PO SCH (22:02)
[2022-12-03] MEDS: THIAMINE HCL 100 MG TABLET (FP) PO SCH (22:02)
[2022-12-04] MEDS ORDERED: chlordiazePOXIDE HCL 10 MG CAPSULE PO PRN
[2022-12-04] MEDS: chlordiazePOXIDE HCL 10 MG CAPSULE PO SCH ×2 (05:31→18:05)
[2022-12-04 06:26] VITALS: RESP 18
[2022-12-04] MEDS: PRENATAL VITAMINS W/ FOLIC ACID TABLET (FP) PO SCH (10:24)
[2022-12-04] MEDS: BACITRACIN 0.9 GM PACKET TP SCH (10:24)
[2022-12-04] MEDS: NICOTINE 14 MG/24 HOURS TOPICAL PATCH TD SCH (10:41)
[2022-12-04] MEDS: SULFAMETHOXAZOLE/TRIMETHOPRIM 800MG/160MG D.S. TABLET PO SCH ×2 (14:02→22:54)
[2022-12-04] MEDS: MELATONIN 5 MG TABLETS PO SCH (22:54)
[2022-12-04] MEDS: THIAMINE HCL 100 MG TABLET (FP) PO SCH (22:54)
[2022-12-05] MEDS ORDERED: chlordiazePOXIDE HCL 10 MG CAPSULE PO ONE (05:00)
[2022-12-05 09:02] VITALS: BP 120/77; PULSE 84; TEMP 97.3
[2022-12-05] MEDS: PRENATAL VITAMINS W/ FOLIC ACID TABLET (FP) PO SCH (09:05)
[2022-12-05] MEDS: SULFAMETHOXAZOLE/TRIMETHOPRIM 800MG/160MG D.S. TABLET PO SCH (09:05)
[2022-12-05] MEDS: NICOTINE 14 MG/24 HOURS TOPICAL PATCH TD SCH (09:05)
[2022-12-05] MEDS: BACITRACIN 0.9 GM PACKET TP SCH (11:00)
== END 2022-12-05 11:04 | disposition home or self-care (01) | DRG 775 ==
LOC: YASAS 11:59 → Y3N 16:44
PROVIDERS: ADMIT Allergy & Immunology; ATTEND Surgery
PROC: HZ2ZZZZ Detoxification Services for Substance Abuse Treatment (ICD-10-PCS; principal; 2022-11-30)
DX: F10.230 Alcohol dependence with withdrawal, uncomplicated (principal); F17.210 Nicotine dependence, cigarettes, uncomplicated; F19.24 Other psychoactive substance dependence with psychoactive substance-induced mood disorder; F39 Unspecified mood [affective] disorder; J45.20 Mild intermittent asthma, uncomplicated; K21.9 Gastro-esophageal reflux disease without esophagitis
CPT/HCPCS: 36415; 80053; 85027; 86780; 87811; C9803-CS; U0003; U0005

== ENCOUNTER 2023-10-19 14:18 | Inpatient (IN) | payer OTHER ==
[2023-10-19 14:59] VITALS: BMI 24.1
[2023-10-19] MEDS ORDERED: NALOXONE HCL 0.4 MG/ML VIAL IM PRN (16:04)
[2023-10-19] MEDS ORDERED: IBUPROFEN 600 MG TABLET (FP) PO PRN (16:04)
[2023-10-19] MEDS ORDERED: DICYCLOMINE HCL 10 MG CAPSULE PO PRN (16:04)
[2023-10-19] MEDS ORDERED: chlordiazePOXIDE HCL 25 MG CAPSULE PO PRN (16:04)
[2023-10-19] MEDS ORDERED: IBUPROFEN 400 MG TABLET (FP) PO PRN (16:04)
[2023-10-19] MEDS ORDERED: guaiFENesin 600 MG TABLET.ER (FP) PO PRN (16:04)
[2023-10-19] MEDS ORDERED: MAG HYDROX/AL HYDROX/SIMETH 30 ML UNIT-DOSE CUP PO PRN (16:04)
[2023-10-19] MEDS ORDERED: LOPERAMIDE HCL 2 MG CAPSULE PO PRN (16:04)
[2023-10-19] MEDS ORDERED: NICOTINE POLACRILEX 2 MG GUM BUC PRN (16:04)
[2023-10-19] MEDS ORDERED: BENZONATATE 200 MG CAPSULE PO PRN (16:04)
[2023-10-19] MEDS ORDERED: BISMUTH SUBSALICYLATE 524 MG/30 ML PO PRN (16:04)
[2023-10-19] MEDS ORDERED: ONDANSETRON *ODT* 4 MG TABLET SL PRN (16:04)
[2023-10-19] MEDS ORDERED: MAGNESIUM HYDROX 2400MG/30ML ORAL SUSPENSION 30 ML CUP PO PRN (16:04)
[2023-10-19] MEDS ORDERED: NALOXONE HCL (KLOXXADO) 8 MG SPRAY NS PRN (16:04)
[2023-10-19] MEDS ORDERED: POLYETHYLENE GLYCOL (HEALTHYLAX) 3350 17 GM PACKET PO PRN (16:04)
[2023-10-19] MEDS ORDERED: BENZOCAINE/MENTHOL (CHLORASEPTIC ) LOZENGE MM PRN (16:04)
[2023-10-19] MEDS: chlordiazePOXIDE HCL 25 MG CAPSULE PO SCH (17:55)
[2023-10-19] MEDS ORDERED: chlordiazePOXIDE HCL 25 MG CAPSULE ONE (18:01)
[2023-10-19] MEDS: MELATONIN 5 MG TABLETS PO SCH (22:28)
[2023-10-19] MEDS: THIAMINE HCL 100 MG TABLET (FP) PO SCH (22:28)
[2023-10-20] MEDS ORDERED: ALBUTEROL SO4 HFA INHALER IH PRN (07:35)
[2023-10-20 10:45] LABS: HEMOGLOBIN 15.4 GM/dL (11.7-16.9); MCH 34.9 pg (25.7-33.7); MEAN CELL VOLUME 99.5 fl (80-96); PLATELET COUNT 226 10^3/uL (134-434); RBC 4.42 M/mm3 (4.00-5.60); RDW 12.4 % (11.9-15.9); WHITE BLOOD COUNT 3.8 K/mm3 (4.0-10.0)
[2023-10-20 10:46] LABS: CHLORIDE 109 mmol/L (98-107); POTASSIUM 3.8 mmol/L (3.5-5.1); SODIUM 142 mmol/L (136-145)
[2023-10-20] MEDS: PRENATAL VITAMINS W/ FOLIC ACID TABLET (FP) PO SCH (10:47)
[2023-10-20] MEDS: NICOTINE 21 MG/24 HOURS TOPICAL PATCH TD SCH (10:47)
[2023-10-20 10:48] LABS: CALCIUM 8.5 mg/dL (8.5-10.1)
[2023-10-20 10:49] LABS: ANION GAP 7 mmol/L (4-13); BLOOD UREA NITROGEN 14.3 mg/dL (7-18); CO2 26 mmol/L (21-32); GLUCOSE,RANDOM 152 mg/dL (74-106)
[2023-10-20 10:52] LABS: CREATININE 1.2 mg/dL (0.55-1.3); SGOT/AST 19 U/L (15-37); SGPT/ALT 23 U/L (13-61)
[2023-10-20 10:53] LABS: BILIRUBIN,TOTAL 0.5 mg/dL (0.2-1); TOT PROT 5.8 g/dl (6.4-8.2)
[2023-10-20 10:54] LABS: ALK PHOS 58 U/L (45-117)
[2023-10-20] MEDS: NICOTINE 14 MG/24 HOURS TOPICAL PATCH TD SCH (13:18)
[2023-10-20] MEDS: QUEtiapine FUMARATE 100 MG TABLET (FP) PO SCH (22:24)
[2023-10-21] MEDS: chlordiazePOXIDE HCL 25 MG CAPSULE PO SCH (06:00)
[2023-10-21] MEDS: ACETAMINOPHEN 325 MG TABLET (FP) PO PRN (10:33)
[2023-10-22] MEDS ORDERED: chlordiazePOXIDE HCL 10 MG CAPSULE PO PRN
[2023-10-22] MEDS: chlordiazePOXIDE HCL 10 MG CAPSULE PO SCH (05:54)
[2023-10-22] MEDS: hydrOXYzine PAMOATE 25 MG CAPSULE (FP) PO PRN (10:11)
[2023-10-22] MEDS: METHOCARBAMOL 500 MG TABLET PO PRN (10:11)
[2023-10-23] MEDS: chlordiazePOXIDE HCL 10 MG CAPSULE PO SCH (05:57)
[2023-10-24] MEDS: chlordiazePOXIDE HCL 10 MG CAPSULE PO ONE (05:57)
[2023-10-24 06:45] VITALS: BP 107/71; PULSE 80; RESP 16; TEMP 97.6
== END 2023-10-24 09:05 | disposition other institution (70) | DRG 774 ==
LOC: YASAS 14:18 → Y6N 17:46
PROVIDERS: ADMIT Allergy & Immunology; ATTEND Allergy & Immunology
PROC: HZ2ZZZZ Detoxification Services for Substance Abuse Treatment (ICD-10-PCS; principal; 2023-10-19)
DX: F10.230 Alcohol dependence with withdrawal, uncomplicated (principal); F14.20 Cocaine dependence, uncomplicated; F12.20 Cannabis dependence, uncomplicated; F17.210 Nicotine dependence, cigarettes, uncomplicated; F19.282 Other psychoactive substance dependence with psychoactive substance-induced sleep disorder; J45.20 Mild intermittent asthma, uncomplicated; K21.9 Gastro-esophageal reflux disease without esophagitis
CPT/HCPCS: 36415; 80053; 80305; 80307; 85027; 86780; 87635; 93005; 93010

== ENCOUNTER 2024-04-02 15:21 | Inpatient (IN) | payer OTHER ==
[2024-04-02 15:51] VITALS: BMI 23.3
[2024-04-02] MEDS ORDERED: ALBUTEROL SO4 HFA INHALER IH PRN (15:57)
[2024-04-02] MEDS ORDERED: LOPERAMIDE HCL 2 MG CAPSULE PO PRN (16:00)
[2024-04-02] MEDS ORDERED: BENZOCAINE/MENTHOL (CHLORASEPTIC ) LOZENGE MM PRN (16:00)
[2024-04-02] MEDS ORDERED: MAG HYDROX/AL HYDROX/SIMETH 30 ML UNIT-DOSE CUP PO PRN (16:00)
[2024-04-02] MEDS ORDERED: DOCUSATE SODIUM 100 MG CAPSULE (FP) PO PRN (16:00)
[2024-04-02] MEDS ORDERED: guaiFENesin 600 MG TABLET.ER (FP) PO PRN (16:00)
[2024-04-02] MEDS ORDERED: MAGNESIUM HYDROX 2400MG/30ML ORAL SUSPENSION 30 ML CUP PO PRN (16:00)
[2024-04-02] MEDS ORDERED: POLYETHYLENE GLYCOL (HEALTHYLAX) 3350 17 GM PACKET PO PRN (16:00)
[2024-04-02] MEDS ORDERED: ACETAMINOPHEN 325 MG TABLET (FP) PO PRN (16:00)
[2024-04-02] MEDS ORDERED: BENZONATATE 200 MG CAPSULE PO PRN (16:00)
[2024-04-02] MEDS ORDERED: IBUPROFEN 400 MG TABLET (FP) PO PRN (16:00)
[2024-04-02] MEDS: MELATONIN 5 MG TABLETS PO SCH (22:33)
[2024-04-02] MEDS: THIAMINE 100 MG TABLET PO SCH (22:33)
[2024-04-03] MEDS: PRENATAL VITAMINS W/ FOLIC ACID TABLET (FP) PO SCH (09:55)
[2024-04-03] MEDS: NICOTINE 7 MG/24 HOURS TOPICAL PATCH TD SCH (09:57)
[2024-04-03] MEDS: IBUPROFEN 600 MG TABLET (FP) PO PRN (09:57)
[2024-04-03] MEDS: NICOTINE 21 MG/24 HOURS TOPICAL PATCH TD SCH (10:48)
[2024-04-03 11:50] LABS: CHLORIDE 112 mmol/L (98-107); HEMATOCRIT 42.6 % (35.4-49); HEMOGLOBIN 14.9 GM/dL (11.7-16.9); MCH 33.4 pg (25.7-33.7); MCHC 35.1 g/dl (32.0-35.9); MEAN CELL VOLUME 95.1 fl (80-96); MEAN PLT VOLUME 8.1 fl (7.5-11.1); PLATELET COUNT 208 10^3/uL (134-434); POTASSIUM 3.9 mmol/L (3.5-5.1); RBC 4.48 M/mm3 (4.00-5.60); SODIUM 143 mmol/L (136-145); WHITE BLOOD COUNT 4.8 K/mm3 (4.0-10.0)
[2024-04-03 11:54] LABS: BLOOD UREA NITROGEN 18.4 mg/dL (7-18); CALCIUM 8.8 mg/dL (8.5-10.1)
[2024-04-03 11:55] LABS: GLUCOSE,RANDOM 100 mg/dL (74-106)
[2024-04-03 11:58] LABS: ALBUMIN 3.1 g/dl (3.4-5.0); SGOT/AST 52 U/L (15-37)
[2024-04-03 11:59] LABS: BILIRUBIN,TOTAL 0.5 mg/dL (0.2-1); TOT PROT 5.6 g/dl (6.4-8.2)
[2024-04-03 12:00] LABS: ALK PHOS 63 U/L (45-117); ANION GAP 7 mmol/L (4-13); CO2 25 mmol/L (21-32)
[2024-04-03 12:06] LABS: SGPT/ALT 53 U/L (13-61)
[2024-04-03 15:46] LABS: URINE APPEARANCE TURBID; URINE BILIRUBIN 1+ (NEGATIVE); URINE COLOR DK YELLOW; URINE GLUCOSE (UA) NEGATIVE (NEGATIVE); URINE KETONE TRACE (NEGATIVE); URINE LEUK ESTERASE NEGATIVE (NEGATIVE); URINE NITRITE NEGATIVE (NEGATIVE); URINE PROTEIN TRACE (NEGATIVE)
[2024-04-03] MEDS: TRIAMCINOLONE ACET 0.1% CREAM 15 GM TUBE TP SCH (23:00)
[2024-04-03] MEDS: BACITRACIN 0.9 GM PACKET TP PRN (23:36)
[2024-04-04] MEDS: hydrOXYzine PAMOATE 25 MG CAPSULE (FP) PO PRN (22:49)
[2024-04-06] MEDS: TUBERCULIN PPD 5 TU/0.1ML VIAL ID ONE (09:18)
[2024-04-07] MEDS: NICOTINE POLACRILEX 2 MG GUM BUC PRN (12:30)
[2024-04-13] MEDS: TOLNAFTATE 1% POWDER 45 GM POW TP SCH (14:45)
[2024-04-13] MEDS: MIRTAZAPINE 15 MG TABLET (FP) PO SCH (21:31)
[2024-04-20] MEDS: MIRTAZAPINE 15 MG TABLET (FP) PO SCH (22:48)
[2024-04-23 07:14] VITALS: BP 117/79; PULSE 75; RESP 18; TEMP 97.5
== END 2024-04-23 09:21 | disposition home or self-care (01) | DRG 772 ==
LOC: YASAS 15:21 → Y3NR 16:46 → Y3E 04-05 16:45
PROVIDERS: ADMIT Allergy & Immunology; ATTEND Psychiatry & Neurology Pain Medicine
PROC: HZ42ZZZ Group Counseling for Substance Abuse Treatment, Cognitive-Behavioral (ICD-10-PCS; principal; 2024-04-02)
DX: F10.20 Alcohol dependence, uncomplicated (principal); F14.20 Cocaine dependence, uncomplicated; F12.20 Cannabis dependence, uncomplicated; F17.210 Nicotine dependence, cigarettes, uncomplicated; F19.982 Other psychoactive substance use, unspecified with psychoactive substance-induced sleep disorder; F19.94 Other psychoactive substance use, unspecified with psychoactive substance-induced mood disorder; K21.9 Gastro-esophageal reflux disease without esophagitis; J45.20 Mild intermittent asthma, uncomplicated; G47.00 Insomnia, unspecified; M19.041 Primary osteoarthritis, right hand; M19.042 Primary osteoarthritis, left hand; Z91.013 Allergy to seafood; Z86.19 Personal history of other infectious and parasitic diseases; Z62.810 Personal history of physical and sexual abuse in childhood; Z91.51 Personal history of suicidal behavior; Z59.00 Homelessness unspecified
CPT/HCPCS: 36415; 80053; 80305; 80307; 81003; 85027; 86780; 87811

== ENCOUNTER 2024-08-27 17:25 | Inpatient (IN) | payer OTHER ==
[2024-08-27 18:20] VITALS: BMI 23.3
[2024-08-27] MEDS ORDERED: MAG HYDROX/AL HYDROX/SIMETH 30 ML UNIT-DOSE CUP PO PRN (19:28)
[2024-08-27] MEDS ORDERED: ONDANSETRON *ODT* 4 MG TABLET SL PRN (19:28)
[2024-08-27] MEDS ORDERED: LOPERAMIDE HCL 2 MG CAPSULE PO PRN (19:28)
[2024-08-27] MEDS ORDERED: DICYCLOMINE HCL 10 MG CAPSULE PO PRN (19:28)
[2024-08-27] MEDS ORDERED: MAGNESIUM HYDROX 2400MG/30ML ORAL SUSPENSION 30 ML CUP PO PRN (19:28)
[2024-08-27] MEDS ORDERED: guaiFENesin 600 MG TABLET.ER (FP) PO PRN (19:28)
[2024-08-27] MEDS ORDERED: ACETAMINOPHEN 325 MG TABLET (FP) PO PRN (19:28)
[2024-08-27] MEDS ORDERED: BENZONATATE 200 MG CAPSULE PO PRN (19:28)
[2024-08-27] MEDS ORDERED: NALOXONE (NARCAN) HCL 4 MG/0.1 ML SPRAY NS PRN (19:28)
[2024-08-27] MEDS ORDERED: BISMUTH SUBSALICYLATE 524 MG/30 ML PO PRN (19:28)
[2024-08-27] MEDS ORDERED: POLYETHYLENE GLYCOL (HEALTHYLAX) 3350 17 GM PACKET PO PRN (19:28)
[2024-08-27] MEDS: MELATONIN 5 MG TABLETS PO SCH (22:47)
[2024-08-27] MEDS: THIAMINE 100 MG TABLET PO SCH (22:47)
[2024-08-27] MEDS: METHOCARBAMOL 500 MG TABLET PO PRN (23:03)
[2024-08-27] MEDS: IBUPROFEN 600 MG TABLET (FP) PO PRN (23:03)
[2024-08-28 09:11] LABS: CHLORIDE 105 mmol/L (98-107); SODIUM 137 mmol/L (136-145)
[2024-08-28 09:15] LABS: ALBUMIN 3.6 g/dl (3.4-5.0); ANION GAP 7 mmol/L (4-13); BLOOD UREA NITROGEN 19.5 mg/dL (7-18); CALCIUM 9.5 mg/dL (8.5-10.1); CO2 26 mmol/L (21-32); GLUCOSE,RANDOM 111 mg/dL (74-106)
[2024-08-28 09:18] LABS: SGPT/ALT 46 U/L (13-61)
[2024-08-28 09:19] LABS: CREATININE 1.1 mg/dL (0.55-1.3); SGOT/AST 147 U/L (15-37)
[2024-08-28 09:20] LABS: BILIRUBIN,TOTAL 0.7 mg/dL (0.2-1); TOT PROT 6.6 g/dl (6.4-8.2)
[2024-08-28 09:21] LABS: ALK PHOS 63 U/L (45-117)
[2024-08-28] MEDS: hydrOXYzine PAMOATE 25 MG CAPSULE (FP) PO PRN (09:24)
[2024-08-28] MEDS: PRENATAL VITAMINS W/ FOLIC ACID TABLET (FP) PO SCH (09:27)
[2024-08-28 09:40] LABS: HEMATOCRIT 43.2 % (35.4-49); HEMOGLOBIN 14.8 GM/dL (11.7-16.9); MCH 32.4 pg (25.7-33.7); MCHC 34.2 g/dl (32.0-35.9); MEAN CELL VOLUME 94.6 fl (80-96); MEAN PLT VOLUME 8.3 fl (7.5-11.1); PLATELET COUNT 215 10^3/uL (134-434); RBC 4.56 M/mm3 (4.00-5.60); RDW 12.9 % (11.9-15.9); WHITE BLOOD COUNT 5.9 K/mm3 (4.0-10.0)
[2024-08-28] MEDS: NICOTINE 21 MG/24 HOURS TOPICAL PATCH TD SCH (11:05)
[2024-08-28] MEDS: LORazepam 1 MG TABLET PO PRN (11:10)
[2024-08-28] MEDS: LORazepam 2 MG TABLET PO SCH (13:24)
[2024-08-28] MEDS: LORazepam 1 MG TABLET PO SCH (16:51)
[2024-08-29] MEDS: LORazepam 1 MG TABLET PO SCH (05:55)
[2024-08-29] MEDS ORDERED: ALBUTEROL SO4 HFA INHALER IH PRN (08:48)
[2024-08-29] MEDS: LIDOCAINE 5% TOPICAL PATCH TP SCH (13:19)
[2024-08-29] MEDS: propRANOLol HCL 10 MG TABLET PO SCH (13:38)
[2024-08-29] MEDS: LIDOCAINE PATCH REMOVAL MC SCH (22:44)
[2024-08-29] MEDS: MINERAL OIL/PETROLAT/WATER TOPICAL CREAM 113 GM JAR TP SCH (22:44)
[2024-08-29] MEDS: BENZOCAINE/MENTHOL (CHLORASEPTIC ) LOZENGE MM PRN (22:50)
[2024-08-30] MEDS ORDERED: LORazepam 0.5 MG TABLET PO PRN
[2024-08-30] MEDS: LORazepam 0.5 MG TABLET PO SCH (05:58)
[2024-08-30] MEDS: LIDOCAINE 5% TOPICAL PATCH TP SCH (10:19)
[2024-08-30] MEDS: NALOXONE (NYS OPIOID OVERDOSE PROGRAM) 4 MG/0.1 ML SPRAY NS SCH (12:32)
[2024-08-30] MEDS: IBUPROFEN 400 MG TABLET (FP) PO PRN (22:48)
[2024-08-31] MEDS: LORazepam 0.5 MG TABLET PO ONE (05:58)
[2024-08-31 09:13] VITALS: BP 126/77; PULSE 75; RESP 17; TEMP 98.9
== END 2024-08-31 11:27 | disposition other institution (70) | DRG 774 ==
LOC: YASAS 17:25 → UNDOADMIN 21:47 → Y6N 21:47
PROVIDERS: ADMIT Surgery; ATTEND Surgery
PROC: HZ2ZZZZ Detoxification Services for Substance Abuse Treatment (ICD-10-PCS; principal; 2024-08-27)
DX: F10.230 Alcohol dependence with withdrawal, uncomplicated (principal); F14.20 Cocaine dependence, uncomplicated; F12.20 Cannabis dependence, uncomplicated; F17.210 Nicotine dependence, cigarettes, uncomplicated; F19.24 Other psychoactive substance dependence with psychoactive substance-induced mood disorder; G47.00 Insomnia, unspecified; J45.20 Mild intermittent asthma, uncomplicated; R74.01 Elevation of levels of liver transaminase levels; Z86.59 Personal history of other mental and behavioral disorders
CPT/HCPCS: 36415; 80053; 80305; 80307; 84450; 85027; 86780; 87811; 93005; 93010

== ENCOUNTER 2024-08-31 11:36 | Inpatient (IN) | payer OTHER ==
[2024-08-31] MEDS ORDERED: IBUPROFEN 400 MG TABLET (FP) PO PRN (12:24)
[2024-08-31] MEDS ORDERED: ACETAMINOPHEN 325 MG TABLET (FP) PO PRN (12:24)
[2024-08-31] MEDS ORDERED: NICOTINE POLACRILEX 2 MG GUM BUC PRN (12:24)
[2024-08-31] MEDS ORDERED: LOPERAMIDE HCL 2 MG CAPSULE PO PRN (12:24)
[2024-08-31] MEDS ORDERED: MAGNESIUM HYDROX 2400MG/30ML ORAL SUSPENSION 30 ML CUP PO PRN (12:24)
[2024-08-31] MEDS ORDERED: MAG HYDROX/AL HYDROX/SIMETH 30 ML UNIT-DOSE CUP PO PRN (12:24)
[2024-08-31] MEDS ORDERED: POLYETHYLENE GLYCOL (HEALTHYLAX) 3350 17 GM PACKET PO PRN (12:24)
[2024-08-31] MEDS: METHOCARBAMOL 500 MG TABLET PO PRN (17:26)
[2024-08-31] MEDS: IBUPROFEN 600 MG TABLET (FP) PO PRN (17:26)
[2024-08-31] MEDS: MELATONIN 5 MG TABLETS PO SCH (21:34)
[2024-08-31] MEDS: THIAMINE 100 MG TABLET PO SCH (21:34)
[2024-09-01] MEDS: hydrOXYzine PAMOATE 25 MG CAPSULE (FP) PO PRN (00:24)
[2024-09-01] MEDS: PRENATAL VITAMINS W/ FOLIC ACID TABLET (FP) PO SCH (06:02)
[2024-09-01] MEDS: NICOTINE 21 MG/24 HOURS TOPICAL PATCH TD SCH (06:02)
[2024-09-01] MEDS: LIDOCAINE 4% PATCH TP SCH (12:13)
[2024-09-01] MEDS: traZODone HCL 50 MG TABLET (FP) PO SCH (22:59)
[2024-09-01] MEDS: LIDOCAINE PATCH REMOVAL MC SCH (23:00)
[2024-09-02] MEDS: BENZONATATE 200 MG CAPSULE PO PRN (10:30)
[2024-09-02] MEDS: BENZOCAINE/MENTHOL (CHLORASEPTIC ) LOZENGE MM PRN (10:33)
[2024-09-02] MEDS: guaiFENesin 600 MG TABLET.ER (FP) PO PRN (22:53)
[2024-09-03] MEDS: PRENATAL VITAMINS W/ FOLIC ACID TABLET (FP) PO SCH (10:06)
[2024-09-03] MEDS ORDERED: METHYL SALICYLATE/MENTHOL 30 GM TUBE TP PRN (12:52)
[2024-09-03] MEDS ORDERED: ACETAMINOPHEN 325 MG TABLET (FP) PO PRN (12:53)
[2024-09-03] MEDS: CLINDAMYCIN PHOSPHATE 1% TOPICAL GEL 30 GM TUBE TP SCH (14:47)
[2024-09-03] MEDS: IBUPROFEN 600 MG TABLET (FP) PO PRN (21:14)
[2024-09-03] MEDS: BENZONATATE 200 MG CAPSULE PO PRN (23:32)
[2024-09-04] MEDS: NICOTINE 21 MG/24 HOURS TOPICAL PATCH TD SCH (10:09)
[2024-09-04] MEDS: guaiFENesin 600 MG TABLET.ER (FP) PO PRN (10:29)
[2024-09-06] MEDS: METHOCARBAMOL 500 MG TABLET PO ONE (22:17)
[2024-09-07] MEDS: METHOCARBAMOL 500 MG TABLET PO PRN (09:58)
[2024-09-08] MEDS: guaiFENesin 600 MG TABLET.ER (FP) PO PRN (23:26)
[2024-09-09] MEDS: OXYMETAZOLINE 0.05% NASAL SOLUTION 15 ML BOTTLE NS PRN (11:27)
[2024-09-22] MEDS ORDERED: NALOXONE (NYS OPIOID OVERDOSE PROGRAM) 4 MG/0.1 ML SPRAY NS PRN (08:50)
[2024-09-23] MEDS ORDERED: ALBUTEROL SO4 HFA INHALER IH PRN (12:17)
[2024-09-23] MEDS: BACLOFEN 10 MG TABLET (FP) PO SCH (22:50)
[2024-09-28 06:37] VITALS: BP 129/72; PULSE 71; RESP 20; TEMP 96.8
== END 2024-09-28 12:45 | disposition home or self-care (01) | DRG 772 ==
LOC: YASAS 11:36 → Y3NR 11:38 → Y5N 09-01 11:04
PROVIDERS: ADMIT Psychiatry & Neurology Pain Medicine; ATTEND Family Medicine Addiction Medicine
PROC: HZ42ZZZ Group Counseling for Substance Abuse Treatment, Cognitive-Behavioral (ICD-10-PCS; principal; 2024-08-31)
DX: F10.20 Alcohol dependence, uncomplicated (principal); F14.20 Cocaine dependence, uncomplicated; F12.20 Cannabis dependence, uncomplicated; F17.210 Nicotine dependence, cigarettes, uncomplicated; F19.282 Other psychoactive substance dependence with psychoactive substance-induced sleep disorder; F31.9 Bipolar disorder, unspecified; G47.00 Insomnia, unspecified; J45.909 Unspecified asthma, uncomplicated; K21.9 Gastro-esophageal reflux disease without esophagitis; J06.9 Acute upper respiratory infection, unspecified; Z20.828 Contact with and (suspected) exposure to other viral communicable diseases; M25.562 Pain in left knee; M15.9 Polyosteoarthritis, unspecified
CPT/HCPCS: 0241U-QW; J0475